=== PATIENT | male | born 1960 | race American Indian/Alaskan Native ===

== ENCOUNTER 2019-04-09 17:51 | Emergency (ER) | payer MEDICARE ==
[2019-04-09 18:05] VITALS: BP 156/79
--- NOTE | 2019-04-09 18:06 | Event Note ---
ED Screening Note Date of service: 04/09/19 Time: 18:03 ED Screening Note: This is a 59 y.o. M. that presents to the ER with rectal pain for months. Reports burning sensation with wipes and pruritus. - tarry stools Current smoker This initial assessment/diagnostic orders/clinical plan/treatment(s) is/are subject to change based on patients health status, clinical progression and re- assessment by fellow clinical providers in the ED. Further treatment and workup at subsequent clinical providers discretion. Patient/guardian urged not to elope from the ED as their condition may be serious if not clinically assessed and managed. Initial orders include:
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
== END 2019-04-09 22:12 | disposition home or self-care (01) ==
LOC: ED 17:51
DX: B00.9 Herpesviral infection, unspecified (principal); K62.9 Disease of anus and rectum, unspecified; I10 Essential (primary) hypertension; F17.200 Nicotine dependence, unspecified, uncomplicated; Z98.890 Other specified postprocedural states; Z91.011 Allergy to milk products; Z88.8 Allergy status to other drugs, medicaments and biological substances

== ENCOUNTER 2019-05-17 10:36 | Emergency (ER) | payer MEDICARE ==
[2019-05-17 13:49] LABS: Basophils % (Auto) 0.6 % (0.0-1.8); Eosinophils # (Auto) 0.1 K/mm3 (0.0-0.4); Eosinophils % (Auto) 1.2 % (0.0-4.3); Hematocrit 42.1 % (35.5-45.6); Lymphocytes # (Auto) 1.6 K/mm3 (1.2-5.4); Lymphocytes % (Auto) 26.5 % (13.4-35.0); Mean Corpuscular HGB Conc 33 % (32-34); Mean Corpuscular Volume 108 fl (84-94); Monocytes # (Auto) 0.7 K/mm3 (0.0-0.8); Monocytes % (Auto) 11.2 % (0.0-7.3); Platelet Count 303 K/mm3 (140-440); Red Blood Count 3.88 M/mm3 (3.65-5.03); Red Cell Distribution Width 15.3 % (13.2-15.2)
[2019-05-17 16:00] LABS: Alanine Aminotransferase 12 units/L (7-56); Albumin 3.9 g/dL (3.9-5); BUN/Creatinine Ratio 8; Blood Urea Nitrogen 11 mg/dL (9-20); Calcium 9.8 mg/dL (8.4-10.2); Hemolysis Index 9
--- NOTE | 2019-05-17 16:48 | Cat Scan Report ---
CT ABDOMEN AND PELVIS WITH CONTRAST INDICATION: Unspecified abdominal pain with rectal bleeding. COMPARISON: No relevant prior imaging study available. TECHNIQUE: Axial, coronal and sagittal CT imaging of the abdomen and pelvis was performed after inje ction of 100 mL Omnipaque [address] scans at this location are performed using CT dose re duction for ALARA by means of automated exposure control. FINDINGS: LOWER CHEST: No significant abnormality. LIVER: No significant abnormality. BILIARY: Cholelithiasis is seen without evidence of acute cholecystitis. No biliary ductal dilatation is noted. PANCREAS: No significant abnormality. SPLEEN: No significant abnormality. ADRENALS: No significant abnormality. KIDNEYS AND URETERS: No significant abnormality. GI TRACT: No significant abnormality is seen along the stomach or small bowel. The colon contains a l arge amount of stool with mild thickening of the sigmoid colon and rectum. There is generalized infil tration of the perirectal fat. No distinct mass or other significant abnormality is identified. The a ppendix is not seen. PERITONEUM: No free fluid. No free air. No fluid collection. LYMPH NODES: No significant adenopathy. VASCULATURE: The aorta is patent and normal in caliber with diffuse atherosclerosis. Diffuse atherosc lerosis is also seen throughout the visualized aortic branches. URINARY BLADDER: Mostly drained by a Velazquez catheter. REPRODUCTIVE ORGANS: No significant abnormality. ADDITIONAL FINDINGS: None. SKELETAL SYSTEM: No acute abnormality. Degenerative changes are seen throughout the spine and SI join ts. IMPRESSION: 1. Suspected acute colitis/proctitis without an associated complication. 2. Cholelithiasis without evidence of acute cholecystitis. 3. Additional findings as above. Signer Name: Minh Carroll MD Signed: 05/17/2019 4:44 PM Workstation Name: [id number]
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
[2019-05-17 17:34] VITALS: BP 136/90
== END 2019-05-17 17:33 | disposition home or self-care (01) ==
LOC: ED 10:36
DX: K52.9 Noninfective gastroenteritis and colitis, unspecified (principal); K62.89 Other specified diseases of anus and rectum; I10 Essential (primary) hypertension; J44.9 Chronic obstructive pulmonary disease, unspecified; F17.200 Nicotine dependence, unspecified, uncomplicated; Z91.011 Allergy to milk products; Z88.5 Allergy status to narcotic agent; Z93.3 Colostomy status; Z79.899 Other long term (current) drug therapy
CPT/HCPCS: 36415; 74177; 80053; 85025; 99284; Q9967

== ENCOUNTER 2019-05-27 00:01 | Emergency (ER) | payer MEDICARE, MEDICAID ==
[2019-05-27] MEDS ORDERED: ONDANSETRON 4 MG/2 ML INJ IV ONE (00:50)
[2019-05-27] MEDS ORDERED: MORPHINE 4 MG/1 ML INJ IV ONE (00:50)
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
[2019-05-27 01:27] LABS: Basophils # (Auto) 0.1 K/mm3 (0.0-0.1); Basophils % (Auto) 0.9 % (0.0-1.8); Eosinophils # (Auto) 0.1 K/mm3 (0.0-0.4); Eosinophils % (Auto) 1.1 % (0.0-4.3); Hematocrit 38.1 % (35.5-45.6); Hemoglobin 12.9 gm/dl (11.8-15.2); Lymphocytes % (Auto) 15.2 % (13.4-35.0); Mean Corpuscular HGB Conc 34 % (32-34); Mean Corpuscular Volume 107 fl (84-94); Monocytes # (Auto) 0.5 K/mm3 (0.0-0.8); Monocytes % (Auto) 6.9 % (0.0-7.3); Platelet Count 314 K/mm3 (140-440); Red Blood Count 3.56 M/mm3 (3.65-5.03); Red Cell Distribution Width 16.2 % (13.2-15.2)
[2019-05-27 01:50] LABS: Alanine Aminotransferase 10 units/L (7-56); Albumin 3.9 g/dL (3.9-5); BUN/Creatinine Ratio 12; Blood Urea Nitrogen 15 mg/dL (9-20); Calcium 11.1 mg/dL (8.4-10.2); Hemolysis Index 4
--- NOTE | 2019-05-27 01:58 | Cat Scan Report ---
CT ABDOMEN AND PELVIS WITH CONTRAST INDICATION / CLINICAL INFORMATION: right-sided abdominal pain, constipation. TECHNIQUE: Axial CT images were obtained through the abdomen and pelvis after 100 mL Omnipaque [address] scans at this location are performed using CT dose reduction for ALARA by means of automated exposure control. COMPARISON: CT dated 05/17/19 FINDINGS: LOWER CHEST: No significant abnormality. LIVER: No significant abnormality. GALLBLADDER: Small gallstones are unchanged. No gallbladder wall thickening. BILE DUCTS: No significant abnormality. PANCREAS: No significant abnormality. SPLEEN: No significant abnormality. ADRENALS: No significant abnormality. RIGHT KIDNEY and URETER: Interval development of mild right hydroureteronephrosis. No obstructing sto ne is identified. LEFT KIDNEY and URETER: Minimal left hydroureteronephrosis. No obstructing stone. STOMACH and SMALL BOWEL: Stomach and small bowel are fluid-filled but not dilated. COLON: Moderate to large amount of semisolid stool in the ascending and proximal transverse colon. APPENDIX: The appendix is upper normal size and fluid-filled without periappendiceal inflammation. PERITONEUM: Small amount of free fluid around the liver and in the pelvis. No free air. No fluid sally ection. LYMPH NODES: No significant adenopathy. AORTA and ARTERIES: Mild atherosclerotic calcification without acute abnormality. IVC and VEINS: No significant abnormality. URINARY BLADDER: Velazquez catheter is no longer present. There is thickening and nodularity of the poste rior wall of the urinary bladder especially in the region of the right ureterovesical junction. There is a 1.4 x 1.3 cm nodule in this location as seen on axial series 2 image 145. REPRODUCTIVE ORGANS: Prostate is enlarged and heterogeneous. ADDITIONAL FINDINGS: None. SKELETAL SYSTEM: No significant abnormality. IMPRESSION: 1. Interval development of mild right hydroureteronephrosis without obstructing stone. There is thick ening and nodularity of the posterior wall of the urinary bladder especially in the region of the rig ht ureterovesical junction. Urologic follow-up may be helpful. 2. Moderate to large amount of semisolid stool in the proximal colon with slight increase since the p rior study. Appendix is fluid-filled but not significantly dilated or inflamed. Signer Name: Luciana Mcadams MD Signed: 05/27/2019 1:54 AM Workstation Name: [id number]
[2019-05-27 03:00] LABS: Bilirubin,Urine NEG (Negative); Blood,Urine MOD (Negative); Color,Urine Yellow (Yellow); Protein,Urine <15 mg/dL mg/dL (Negative); Urobilinogen,Urine < 2.0 mg/dL (<2.0)
[2019-05-27] MEDS ORDERED: SODIUM CHLORIDE 0.9% 1000 ML 1,000 ML IV ONE (03:03)
[2019-05-27] MEDS ORDERED: KETOROLAC 30 MG/1 ML INJ IV ONE (03:03)
[2019-05-27 05:16] VITALS: BP 156/96
== END 2019-05-27 04:50 | disposition home or self-care (01) ==
LOC: ED 00:01
DX: N39.0 Urinary tract infection, site not specified (principal); N13.4 Hydroureter; E83.52 Hypercalcemia; I10 Essential (primary) hypertension; J44.9 Chronic obstructive pulmonary disease, unspecified; F17.200 Nicotine dependence, unspecified, uncomplicated; Z91.011 Allergy to milk products; Z88.5 Allergy status to narcotic agent
CPT/HCPCS: 36415; 74177; 80053; 81001; 83690; 85025; 87086; 96374; 96375; 99284; J1885; J2270; J2405; J7030; Q9967

== ENCOUNTER 2019-07-15 14:21 | Inpatient (IN) | payer MEDICAID, MEDICARE ==
[2019-07-15 16:43] LABS: Basophils # (Auto) 0.1 K/mm3 (0.0-0.1); Basophils % (Auto) 0.7 % (0.0-1.8); Eosinophils % (Auto) 0.6 % (0.0-4.3); Lymphocytes # (Auto) 1.5 K/mm3 (1.2-5.4); Mean Corpuscular HGB Conc 34 % (32-34); Mean Corpuscular Volume 107 fl (84-94); Monocytes # (Auto) 0.8 K/mm3 (0.0-0.8); Monocytes % (Auto) 9.8 % (0.0-7.3); Platelet Count 334 K/mm3 (140-440); Red Blood Count 3.27 M/mm3 (3.65-5.03); Red Cell Distribution Width 14.1 % (13.2-15.2)
--- NOTE | 2019-07-15 16:45 | XRay Report ---
CHEST 1 VIEW 4:11 PM INDICATION / CLINICAL INFORMATION: Shortness of breath. COMPARISON: None available. FINDINGS: SUPPORT DEVICES: There is a right jugular Port-A-Cath with the tip overlying the mid SVC. HEART / MEDIASTINUM: There is a median sternotomy. The heart size and pulmonary vasculature are monet l. LUNGS / PLEURA: The lungs are mildly hyperinflated but clear. No pneumothorax. ADDITIONAL FINDINGS: No significant additional findings. IMPRESSION:Probable emphysema. No other significant abnormality. Signer Name: Robbin Vargas MD Signed: 07/15/2019 4:40 PM Workstation Name: [id number]
[2019-07-15 18:51] LABS: BUN/Creatinine Ratio 16; Blood Urea Nitrogen 21 mg/dL (9-20)
[2019-07-15 18:53] LABS: Calcium 12.7 mg/dL (8.4-10.2); Hemolysis Index 7
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
[2019-07-15 19:51] LABS: Chol/HDL Ratio 3.75 %; HDL Cholesterol 44 mg/dL (40-59); LDL Cholesterol,Direct 93 mg/dL (50-130)
[2019-07-15 20:08] LABS: INR 1.04 (0.87-1.13); Partial Thromboplastin Time 33.5 Sec. (24.2-36.6)
[2019-07-15 20:32] LABS: Bacteria,Urine 3+ /HPF (Negative); Bilirubin,Urine NEG (Negative); Blood,Urine LG (Negative); Color,Urine Yellow (Yellow); Urobilinogen,Urine < 2.0 mg/dL (<2.0)
[2019-07-15] MEDS ORDERED: MORPHINE 4 MG/1 ML INJ IV ONE (21:33)
[2019-07-15] MEDS ORDERED: cefTRIAXone/NS 1 GM/50 ML 1 GM/50 ML BAG IV ONE (21:33)
--- NOTE | 2019-07-15 21:58 | Cat Scan Report ---
CT angio chest INDICATION: sob. TECHNIQUE: All CT scans at this location are performed using CT dose reduction for ALARA by means of automated e xposure control. Precontrast localizer images were obtained, followed by axial and 3-dimensional reconstruction images , performed at an independent workstation by the reliability technologist after IV bolus contrast injection. COMPARISON: None available. FINDINGS: Mediastinum, aidee and axillae are negative. Images through the upper abdomen show what appears to be bilateral hydronephrosis. No pleural fluid. Mild emphysema but no acute superimposed disease. Negative for pulmonary embolus. IMPRESSION: 1. No evidence of pulmonary embolus. 2. Mild emphysema. Signer Name: Max Henderson MD Signed: 07/15/2019 9:53 PM Workstation Name: [id number]
[2019-07-15] MEDS ORDERED: ASPIRIN 325 MG TAB PO ONE (22:00)
[2019-07-15] MEDS: ENOXAPARIN 60 MG/0.6 ML INJ SUB-Q SCH (22:31)
[2019-07-15] MEDS ORDERED: NITROGLYCERIN 0.4 MG TAB SUBL SL PRN (23:05)
[2019-07-15] MEDS ORDERED: ONDANSETRON 4 MG/2 ML INJ IV PRN (23:05)
[2019-07-15] MEDS ORDERED: ACETAMINOPHEN 325 MG TAB PO PRN (23:05)
--- NOTE | 2019-07-15 23:36 | History and Physical Report ---
History of Present Illness Date of examination: 07/15/19 Date of admission: 07/15/19 22:25 Chief complaint: Shortness of breath and difficulty breathing History of present illness: 59-year-old -[place] male with known history of COPD, HIV, anal cancer, coronary artery disease presenting to the emergency room today complaining of shortness of breath. He has had some shortness of breath on exertion. He denies any chest pain, no fever or chills, no nausea vomiting. He has had chronic anal pain but denies diarrhea. Upon evaluation in the emergency room he was found to have elevated troponin and also UTI. EKG done was within normal limit. Findings were discussed with the mannequin decorator on-call and recommendation was to have patient admitted for further work-up. Past History Past Medical History: CAD, COPD, hypertension, other (HIV positive, history of TB in 2006) Past Surgical History: Other (Colostomy reversal in July 2018) Social history: smoking (Smokes about half a pack of cigarette daily), alcohol abuse (Drinks alcohol occasionally) Family history: no significant family history Medications and Allergies Allergies Allergy/AdvReac Type Severity Reaction Status Date / Time milk Allergy Hives Verified 04/09/19 17:57 lisinopril AdvReac Angioedema Verified 04/09/19 17:57 Home Medications Medication Instructions Recorded Confirmed Last Taken Type Acyclovir [Zovirax Tab] 800 mg PO Q12H #40 tab 04/09/19 Unknown Rx Acyclovir [Zovirax] 1 applic TP BID #2 oint...g. 04/09/19 Unknown Rx Ibuprofen [Motrin] 800 mg PO Q8HR #30 tablet 04/09/19 Unknown Rx Dicyclomine [Bentyl] 20 mg PO QID #10 tablet 05/17/19 Unknown Rx Docusate Sodium [Colace] 100 mg PO BID #30 capsule 05/17/19 Unknown Rx HYDROcodone/APAP 5-325 [[place] 1 each PO Q6HR PRN #14 tablet 05/17/19 Unknown Rx 5/325] levoFLOXacin [Levaquin TAB] 500 mg PO QDAY #7 tablet 05/17/19 Unknown Rx metroNIDAZOLE [Flagyl] 500 mg PO Q12HR #14 tab 05/17/19 Unknown Rx HYDROcodone/APAP 5-325 [[place] 1 - 2 each PO Q6HR PRN #14 tablet 05/27/19 Unknown Rx 5/325] Ketorolac [Toradol] 10 mg PO Q6H PRN #16 tablet 05/27/19 Unknown Rx Sulfamethoxazole/Trimethoprim 1 each PO BID #14 tablet 05/27/19 Unknown Rx [Bactrim DS TAB] Active Meds: Active Medications Acetaminophen (Tylenol) 650 mg PO Q4H PRN PRN Reason: Pain MILD(1-3)/Fever >100.5/PANIAGUA Aspirin (Ecotrin) 325 mg PO QDAY [facility] Enoxaparin Sodium (Enoxaparin) 60 mg SUB-Q Q12HR [facility] Last Admin: 07/15/19 22:31 Dose: 60 mg Documented by: Ceftriaxone Sodium (Rocephin/Ns 1 Gm/50 Ml) 1 gm in 50 mls @ 100 mls/hr IV Q24HR [facility]; Protocol Morphine Sulfate (Morphine) 2 mg IV Q5MIN PRN PRN Reason: Chest Pain unrelieved by NTG Nitroglycerin (Nitrostat) 0.4 mg SL Q5M PRN PRN Reason: Chest Pain Ondansetron HCl (Zofran) 4 mg IV Q8H PRN PRN Reason: Nausea And Vomiting Sodium Chloride (Sodium Chloride Flush Syringe 10 Ml) 10 ml IV PRN PRN PRN Reason: LINE FLUSH Sodium Chloride (Sodium Chloride Flush Syringe 10 Ml) 10 ml IV BID [facility] Review of Systems Respiratory: shortness of breath Neurological: weakness Exam - Constitutional Vitals: Temp Pulse Resp BP Pulse Ox 97.7 F 85 10 L 132/69 100 07/15/19 19:20 07/15/19 23:00 07/15/19 23:00 07/15/19 23:00 07/15/19 23:00 General appearance: Present: no acute distress, cachectic - EENT Eyes: Present: PERRL, EOM intact ENT: hearing intact, clear oral mucosa, dentition normal - Neck Neck: Present: supple, normal ROM - Respiratory Respiratory: bilateral: CTA - Cardiovascular Rhythm: regular Heart Sounds: Present: S1 & S2 - Extremities Extremities: no ischemia, pulses intact, No edema, Full ROM Peripheral Pulses: within normal limits - Abdominal General gastrointestinal: Present: soft, non-tender, non-distended, other (Scar of old surgery in midline) - Integumentary Integumentary: Present: clear, warm, dry - Musculoskeletal Musculoskeletal: strength equal bilaterally - Psychiatric Psychiatric: appropriate mood/affect, intact judgment & insight, cooperative - Neurologic Neurologic: CNII-XII intact, moves all extremities Results - Labs CBC & Chem 7: 07/15/19 23:43 07/15/19 23:43 Labs: Abnormal lab results 07/15/19 07/15/19 07/15/19 Range/Units 16:24 16:24 16:24 RBC 3.27 L (3.65-5.03) M/mm3 Hct 35.0 L (35.5-45.6) % MCV 107 H (84-94) fl MCH 37 H (28-32) pg [place] % (Auto) 9.8 H (0.0-7.3) % D-Dimer (0-234) ng/mlDDU Chloride 110.2 H (98-107) mmol/L Carbon Dioxide 13 L (22-30) mmol/L BUN 21 H (9-20) mg/dL Glucose 115 H (75-100) mg/dL Calcium 12.7 H* (8.4-10.2) mg/dL Troponin T 0.046 H (0.00-0.029) ng/mL NT-Pro-B Natriuret Pep 1015 H (0-900) pg/mL Triglycerides 152 H (2-149) mg/dL Urine WBC (Auto) (0.0-6.0) /HPF 07/15/19 07/15/19 07/15/19 Range/Units 19:42 19:42 Unknown RBC (3.65-5.03) M/mm3 Hct (35.5-45.6) % MCV (84-94) fl MCH (28-32) pg [place] % (Auto) (0.0-7.3) % D-Dimer 1798.03 H (0-234) ng/mlDDU Chloride (98-107) mmol/L Carbon Dioxide (22-30) mmol/L BUN (9-20) mg/dL Glucose (75-100) mg/dL Calcium (8.4-10.2) mg/dL Troponin T 0.041 H (0.00-0.029) ng/mL NT-Pro-B Natriuret Pep (0-900) pg/mL Triglycerides (2-149) mg/dL Urine WBC (Auto) 99.0 H (0.0-6.0) /HPF Assessment and Plan - Patient Problems (1) NSTEMI (non-ST elevated myocardial infarction) Current Visit: Yes Status: Acute Plan to address problem: Denies any chest pain. Will monitor cardiac enzymes. We will placed on daily aspirin, sublingual nitroglycerin and IV morphine as needed. We await further recommendation from cardiology. We will also monitor EKG. (2) UTI (urinary tract infection) Current Visit: Yes Status: Acute Plan to address problem: Patient placed on empiric IV antibiotics. We await urine culture results. (3) Dyspnea Current Visit: Yes Status: Acute Plan to address problem: Probably angina equivalent. He awaits evaluation by cardiology. (4) Hypertension Current Visit: Yes Status: Acute Plan to address problem: We will continue routine home medications and monitor vital signs closely. (5) History of HIV infection Current Visit: Yes Status: Acute Plan to address problem: Patient will be continued on his medications. (6) DVT prophylaxis Current Visit: Yes Status: Acute Plan to address problem: Patient on subcutaneous Lovenox. (7) Full code status Current Visit: Yes Status: Acute
[2019-07-16 00:21] LABS: Basophils # (Auto) 0.1 K/mm3 (0.0-0.1); Basophils % (Auto) 0.6 % (0.0-1.8); Eosinophils % (Auto) 0.6 % (0.0-4.3); Hematocrit 36.2 % (35.5-45.6); Hemoglobin 12.4 gm/dl (11.8-15.2); Lymphocytes # (Auto) 1.8 K/mm3 (1.2-5.4); Lymphocytes % (Auto) 21.5 % (13.4-35.0); Mean Corpuscular HGB Conc 34 % (32-34); Mean Corpuscular Volume 108 fl (84-94); Monocytes # (Auto) 0.5 K/mm3 (0.0-0.8); Monocytes % (Auto) 6.3 % (0.0-7.3); Platelet Count 376 K/mm3 (140-440); Red Blood Count 3.36 M/mm3 (3.65-5.03); Red Cell Distribution Width 14.5 % (13.2-15.2)
[2019-07-16 00:32] LABS: BUN/Creatinine Ratio 18; Blood Urea Nitrogen 21 mg/dL (9-20); Hemolysis Index 4
[2019-07-16 00:48] LABS: Calcium > 13.0 mg/dL (8.4-10.2)
[2019-07-16] MEDS ORDERED: POTASSIUM CHLORIDE ER 20 MEQ TAB PO ONE (04:10)
[2019-07-16 05:24] LABS: Basophils # (Auto) 0.1 K/mm3 (0.0-0.1); Basophils % (Auto) 0.7 % (0.0-1.8); Eosinophils % (Auto) 0.5 % (0.0-4.3); Hematocrit 33.4 % (35.5-45.6); Hemoglobin 11.6 gm/dl (11.8-15.2); Lymphocytes # (Auto) 1.3 K/mm3 (1.2-5.4); Lymphocytes % (Auto) 18.3 % (13.4-35.0); Mean Corpuscular HGB Conc 35 % (32-34); Mean Corpuscular Volume 107 fl (84-94); Monocytes # (Auto) 0.7 K/mm3 (0.0-0.8); Monocytes % (Auto) 9.5 % (0.0-7.3); Platelet Count 332 K/mm3 (140-440); Red Blood Count 3.11 M/mm3 (3.65-5.03); Red Cell Distribution Width 14.4 % (13.2-15.2)
[2019-07-16 05:31] LABS: INR 1.08 (0.87-1.13); Partial Thromboplastin Time 31.1 Sec. (24.2-36.6)
[2019-07-16] MEDS: SODIUM CHLORIDE 0.9% 1000 ML 1,000 ML IV SCH (06:28)
[2019-07-16] MEDS: MORPHINE 2 MG/1 ML INJ IV PRN ×2 (06:30→23:29)
[2019-07-16 07:07] LABS: BUN/Creatinine Ratio 19; Blood Urea Nitrogen 23 mg/dL (9-20); Hemolysis Index 6
[2019-07-16 07:15] LABS: Calcium > 13.0 mg/dL (8.4-10.2)
--- NOTE | 2019-07-16 11:36 | Consultation ---
History of Present Illness Consult date: 07/16/19 Requesting physician: SPRING VALLEJO Consult reason: elevated troponin History of present illness: Mr. Dowell is a 59 y/o male with a medical history significant for COPD, anal cancer, HIV and CAD who presented to [facility] with worsening shortness of breath and dizziness f/b "feeling wobbly" for the past three days. He follows with a cleaner at [place]. CXR shows probable emphysema. Troponins elevated to 0.041 and 0.068 and thus, we are consulted. EKG NAF and the patient denies chest pain. Past History Past Medical History: CAD, COPD, hypertension, other (HIV positive, history of TB in 2006) Past Surgical History: Other (Colostomy reversal in July 2018) Social history: smoking (Smokes about half a pack of cigarette daily), alcohol abuse (Drinks alcohol occasionally) Family history: no significant family history Medications and Allergies Allergies Allergy/AdvReac Type Severity Reaction Status Date / Time milk Allergy Hives Verified 04/09/19 17:57 lisinopril AdvReac Angioedema Verified 04/09/19 17:57 Home Medications Medication Instructions Recorded Confirmed Last Taken Type Acyclovir [Zovirax Tab] 800 mg PO Q12H #40 tab 04/09/19 07/16/19 Unknown Rx Acyclovir [Zovirax] 1 applic TP BID #2 oint...g. 04/09/19 07/16/19 Unknown Rx Ibuprofen [Motrin] 800 mg PO Q8HR #30 tablet 04/09/19 07/16/19 Unknown Rx Dicyclomine [Bentyl] 20 mg PO QID #10 tablet 05/17/19 07/16/19 Unknown Rx Docusate Sodium [Colace] 100 mg PO BID #30 capsule 05/17/19 07/16/19 Unknown Rx HYDROcodone/APAP 5-325 [[place] 1 each PO Q6HR PRN #14 tablet 05/17/19 07/16/19 Unknown Rx 5/325] levoFLOXacin [Levaquin TAB] 500 mg PO QDAY #7 tablet 05/17/19 07/16/19 Unknown Rx metroNIDAZOLE [Flagyl] 500 mg PO Q12HR #14 tab 05/17/19 07/16/19 Unknown Rx HYDROcodone/APAP 5-325 [[place] 1 - 2 each PO Q6HR PRN #14 tablet 05/27/19 07/16/19 Unknown Rx 5/325] Ketorolac [Toradol] 10 mg PO Q6H PRN #16 tablet 05/27/19 07/16/19 Unknown Rx Sulfamethoxazole/Trimethoprim 1 each PO BID #14 tablet 05/27/19 07/16/19 Unknown Rx [Bactrim DS TAB] Active Meds: Active Medications Acetaminophen (Tylenol) 650 mg PO Q4H PRN PRN Reason: Pain MILD(1-3)/Fever >100.5/PANIAGUA Aspirin (Ecotrin) 325 mg PO QDAY [facility] Enoxaparin Sodium (Enoxaparin) 60 mg SUB-Q Q12HR [facility] Last Admin: 07/15/19 22:31 Dose: 60 mg Documented by: Ceftriaxone Sodium (Rocephin/Ns 1 Gm/50 Ml) 1 gm in 50 mls @ 100 mls/hr IV Q24HR [facility]; Protocol Sodium Chloride (Nacl 0.9% 1000 Ml) 1,000 mls @ 125 mls/hr IV DIRECT [facility] Last Admin: 07/16/19 06:28 Dose: 125 mls/hr Documented by: Morphine Sulfate (Morphine) 2 mg IV Q5MIN PRN PRN Reason: Chest Pain unrelieved by NTG Last Admin: 07/16/19 06:30 Dose: 2 mg Documented by: Nitroglycerin (Nitrostat) 0.4 mg SL Q5M PRN PRN Reason: Chest Pain Ondansetron HCl (Zofran) 4 mg IV Q8H PRN PRN Reason: Nausea And Vomiting Sodium Chloride (Sodium Chloride Flush Syringe 10 Ml) 10 ml IV PRN PRN PRN Reason: LINE FLUSH Sodium Chloride (Sodium Chloride Flush Syringe 10 Ml) 10 ml IV BID [facility] Review of Systems All systems: negative Cardiovascular: shortness of breath Physical Examination Vital Signs Temp Pulse Resp BP Pulse Ox 97.6 F 60 16 171/87 98 07/15/19 17:40 07/15/19 17:40 07/15/19 17:40 07/15/19 17:40 07/15/19 17:40 General appearance: no acute distress HEENT: Positive: PERRL Neck: Positive: neck supple Cardiac: Positive: Reg Rate and Rhythm Lungs: Positive: Normal Exam Neuro: Positive: Grossly Intact Abdomen: Positive: Unremarkable Male genitourinary: Positive: deferred Skin: Positive: Clear Musculoskeletal: Normal Range of Motion Extremities: Present: normal Results 07/16/19 05:03 07/16/19 05:03 Coagulation 07/15/19 07/16/19 Range/Units 19:42 05:03 PT 13.7 14.1 (12.2-14.9) Sec. INR 1.04 1.08 (0.87-1.13) APTT 33.5 31.1 (24.2-36.6) Sec. Lipids 07/15/19 Range/Units 16:24 Triglycerides 152 H (2-149) mg/dL Cholesterol 165 (50-199) mg/dL HDL Cholesterol 44 (40-59) mg/dL Cholesterol/HDL Ratio 3.75 % CBC 07/15/19 07/15/19 07/16/19 Range/Units 16:24 23:43 05:03 WBC 7.8 8.3 7.1 (4.5-11.0) K/mm3 RBC 3.27 L 3.36 L 3.11 L (3.65-5.03) M/mm3 Hgb 12.0 12.4 11.6 L (11.8-15.2) gm/dl Hct 35.0 L 36.2 33.4 L (35.5-45.6) % Plt Count 334 376 332 (140-440) K/mm3 Lymph # 1.5 1.8 1.3 (1.2-5.4) K/mm3 [place] # 0.8 0.5 0.7 (0.0-0.8) K/mm3 Eos # 0.0 0.0 0.0 (0.0-0.4) K/mm3 Baso # 0.1 0.1 0.1 (0.0-0.1) K/mm3 Comprehensive Metabolic Panel 07/15/19 07/15/19 07/16/19 Range/Units 16:24 23:43 05:03 Sodium 138 139 138 (137-145) mmol/L Potassium 3.8 3.1 L 3.5 L (3.6-5.0) mmol/L Chloride 110.2 H 108.2 H 108.7 H (98-107) mmol/L Carbon Dioxide 13 L 16 L 15 L (22-30) mmol/L BUN 21 H 21 H 23 H (9-20) mg/dL Creatinine 1.3 1.2 1.2 (0.8-1.5) mg/dL Glucose 115 H 119 H 119 H (75-100) mg/dL Calcium 12.7 H* > 13.0 H* > 13.0 H* (8.4-10.2) mg/dL - Imaging and Cardiology Echo: pending EKG interpretations - Telemetry EKG Rhythm: Sinus Rhythm Assessment and Plan Mr. Dowell is a 59 y/o male admitted with SOB. Symptom presentation does not appear to be cardiac in origin given CXR, other diagnostics and physical exam; troponin elevation likely r/t demand ischemia. However, will obtain medical records from [place] to evaluate prior cardiac workup. Recommend pulmonology consultation. Continue current management for now. The patient has been seen in conjunction with Dr. Randle, who agrees with the assessment and plan. - Patient Problems (1) Dyspnea Current Visit: Yes Status: Acute (2) Elevated troponin Current Visit: Yes Status: Acute (3) COPD (chronic obstructive pulmonary disease) Current Visit: Yes Status: Chronic (4) CAD (coronary artery disease) Current Visit: Yes Status: Chronic (5) History of anal cancer Current Visit: Yes Status: Chronic (6) History of HIV infection Current Visit: Yes Status: Chronic (7) Hypertension Current Visit: Yes Status: Chronic
[2019-07-16] MEDS: cefTRIAXone/NS 1 GM/50 ML 1 GM/50 ML BAG IV SCH (12:23)
[2019-07-16] MEDS: ENOXAPARIN 60 MG/0.6 ML INJ SUB-Q SCH ×2 (12:24→21:52)
[2019-07-16] MEDS: ASPIRIN EC 325 MG TAB PO SCH (12:24)
[2019-07-17] MEDS: SODIUM CHLORIDE 0.9% 1000 ML 1,000 ML IV SCH ×2 (05:12→18:25)
[2019-07-17] MEDS: cefTRIAXone/NS 1 GM/50 ML 1 GM/50 ML BAG IV SCH (09:34)
[2019-07-17] MEDS: ASPIRIN EC 325 MG TAB PO SCH (09:35)
[2019-07-17] MEDS: ENOXAPARIN 60 MG/0.6 ML INJ SUB-Q SCH ×2 (09:35→21:13)
--- NOTE | 2019-07-17 12:56 | Progress Note ---
Assessment and Plan (1) NSTEMI (non-ST elevated myocardial infarction) Current Visit: Yes Status: Acute Plan to address problem: Denies any chest pain. Will monitor cardiac enzymes. We will placed on daily aspirin, sublingual nitroglycerin and IV morphine as needed. We await further recommendation from cardiology. We will also monitor EKG. (2) UTI (urinary tract infection) Current Visit: Yes Status: Acute Plan to address problem: Patient placed on empiric IV antibiotics. We await urine culture results. (3) Dyspnea Current Visit: Yes Status: Acute Plan to address problem: Probably angina equivalent. He awaits evaluation by cardiology. (4) Hypertension Current Visit: Yes Status: Acute Plan to address problem: We will continue routine home medications and monitor vital signs closely. (5) History of HIV infection Current Visit: Yes Status: Acute Plan to address problem: Patient will be continued on his medications. (6) DVT prophylaxis Current Visit: Yes Status: Acute Plan to address problem: Patient on subcutaneous Lovenox. (7) Hypercalcemia IV Fluids and Pamidronate Subjective Date of service: 07/16/19 Principal diagnosis: NSTEMI Interval history: 59-year-old -[place] male with known history of COPD, HIV, anal cancer, coronary artery disease presenting to the emergency room today complaining of shortness of breath. He has had some shortness of breath on exertion. He denies any chest pain, no fever or chills, no nausea vomiting. He has had chronic anal pain but denies diarrhea. Upon evaluation in the emergency room he was found to have elevated troponin and also UTI. EKG done was within normal limit. Findings were discussed with the microsoft windows engineer on-call and recommendation was to have patient admitted for further work-up. Objective - Constitutional Vitals: Vital Signs - 12hr 07/17/19 07/17/19 05:17 07:35 Temperature 97.6 F 98.6 F Pulse Rate 72 63 Respiratory 18 19 Rate Blood Pressure 122/71 158/93 O2 Sat by Pulse 100 100 Oximetry General appearance: Present: no acute distress, well-nourished - EENT Eyes: PERRL, EOM intact ENT: hearing intact, clear oral mucosa Ears: bilateral: normal - Neck Neck: supple, normal ROM - Respiratory Respiratory effort: normal Respiratory: bilateral: CTA - Breasts Breasts: normal - Cardiovascular Rhythm: regular Heart Sounds: Present: S1 & S2. Absent: gallop, rub Extremities: pulses intact, No edema, normal color, Full ROM - Gastrointestinal General gastrointestinal: Present: soft, non-tender, non-distended, normal bowel sounds - Genitourinary Male genitourinary: normal - Integumentary Integumentary: clear, warm, dry - Musculoskeletal Musculoskeletal: 1, strength equal bilaterally - Neurologic Neurologic: moves all extremities - Psychiatric Psychiatric: memory intact, appropriate mood/affect, intact judgment & insight - Labs CBC & Chem 7: 07/16/19 05:03 07/16/19 05:03
--- NOTE | 2019-07-17 13:22 | Progress Note ---
Assessment and Plan (1) NSTEMI (non-ST elevated myocardial infarction) Current Visit: Yes Status: Acute Plan to address problem: Denies any chest pain. Will monitor cardiac enzymes. We will placed on daily aspirin, sublingual nitroglycerin and IV morphine as needed. We await further recommendation from cardiology. We will also monitor EKG. (2) UTI (urinary tract infection) Current Visit: Yes Status: Acute Plan to address problem: Patient placed on empiric IV antibiotics. We await urine culture results. (3) Dyspnea Current Visit: Yes Status: Acute Plan to address problem: Probably angina equivalent. He awaits evaluation by cardiology. (4) Hypertension Current Visit: Yes Status: Acute Plan to address problem: We will continue routine home medications and monitor vital signs closely. (5) History of HIV infection Current Visit: Yes Status: Acute Plan to address problem: Patient will be continued on his medications. (6) DVT prophylaxis Current Visit: Yes Status: Acute Plan to address problem: Patient on subcutaneous Lovenox. (7) Hypercalcemia IV Fluids and Pamidronate Check PTH Subjective Date of service: 07/17/19 Principal diagnosis: NSTEMI Interval history: 59-year-old -British male with known history of COPD, HIV, anal cancer, coronary artery disease presenting to the emergency room today complaining of shortness of breath. He has had some shortness of breath on exertion. He denies any chest pain, no fever or chills, no nausea vomiting. He has had chronic anal pain but denies diarrhea. Upon evaluation in the emergency room he was found to have elevated troponin and also UTI. EKG done was within normal limit. Findings were discussed with the telesales agent on-call and recommendation was to have patient admitted for further work-up. Objective - Constitutional Vitals: Vital Signs - 12hr 07/17/19 07/17/19 05:17 07:35 Temperature 97.6 F 98.6 F Pulse Rate 72 63 Respiratory 18 19 Rate Blood Pressure 122/71 158/93 O2 Sat by Pulse 100 100 Oximetry General appearance: Present: no acute distress, well-nourished - EENT Eyes: PERRL, EOM intact ENT: hearing intact, clear oral mucosa Ears: bilateral: normal - Neck Neck: supple, normal ROM - Respiratory Respiratory effort: normal Respiratory: bilateral: CTA - Breasts Breasts: normal - Cardiovascular Heart rate: 78 Rhythm: regular Heart Sounds: Present: S1 & S2. Absent: gallop, rub Extremities: no ischemia, pulses intact, No edema, normal color, Full ROM - Gastrointestinal General gastrointestinal: Present: soft, non-tender, non-distended, normal bowel sounds - Genitourinary Male genitourinary: normal - Integumentary Integumentary: clear, warm, dry - Musculoskeletal Musculoskeletal: 1, strength equal bilaterally - Neurologic Neurologic: moves all extremities - Psychiatric Psychiatric: memory intact, appropriate mood/affect, intact judgment & insight - Labs CBC & Chem 7: 07/16/19 05:03 07/16/19 05:03
[2019-07-17] MEDS: PAMIDRONATE DISODIUM 30 MG in SODIUM CHLORIDE 0.9% 500 ML 500 ML IV SCH (14:20)
--- NOTE | 2019-07-17 14:45 | Progress Note ---
Assessment and Plan Mr. Dowell is a 59 y/o male admitted with SOB. Symptom presentation does not appear to be cardiac in origin given CXR, other diagnostics and physical exam; troponin elevation likely r/t demand ischemia. However, will obtain medical records from [place] to evaluate prior cardiac workup. 07/17/2019.awaiting reports from [place],has significant hypercalcemia . Subjective Date of service: 07/17/19 Principal diagnosis: NSTEMI Interval history: Denies any chest pain. Objective Vital Signs Temp Pulse Resp BP Pulse Ox 07/17/19 07:35 98.6 F 63 19 158/93 100 07/17/19 05:17 97.6 F 72 18 122/71 100 07/17/19 00:17 97.9 F 55 L 18 151/90 98 07/16/19 23:29 20 07/16/19 20:18 97.7 F 73 20 136/79 100 07/16/19 20:00 103 H 07/16/19 16:31 98.0 F 69 18 142/86 92 - Physical Examination HEENT: Positive: PERRL Neck: Positive: neck supple Cardiac: Positive: Regular Rhythm Lungs: Positive: Normal Breath Sounds Neuro: Positive: Grossly Intact Abdomen: Positive: Unremarkable Skin: Positive: Clear Musculoskeletal: Normal Range of Motion Extremities: Present: normal. Absent: edema - Imaging and Cardiology Echo: pending
[2019-07-17] MEDS: MORPHINE 2 MG/1 ML INJ IV PRN ×2 (16:07→21:13)
[2019-07-18] MEDS: MORPHINE 2 MG/1 ML INJ IV PRN ×2 (03:29→21:54)
[2019-07-18] MEDS: ENOXAPARIN 60 MG/0.6 ML INJ SUB-Q SCH ×2 (10:49→21:54)
[2019-07-18] MEDS: cefTRIAXone/NS 1 GM/50 ML 1 GM/50 ML BAG IV SCH (10:49)
[2019-07-18] MEDS: ASPIRIN EC 325 MG TAB PO SCH (10:49)
--- NOTE | 2019-07-18 15:10 | Progress Note ---
Assessment and Plan Dyspnea / suspected emphysema Echo done at [facility] 12/2018 showed EF 55-60%, LA mod dilated. DDimer elevated - chest CTA negative for PE, shows mild emphysema. Plan for lexiscan MPI stress test in AM. NPO after MN. CAD s/p CABG in 2012 Plan for lexiscan MPI stress test in AM. NPO after MN. Minimally elevated troponin Pt denies any occurrence of chest pain. ECG with no acute ischemic changes. However, pt denies any recent ischemic evaluation. Plan for lexiscan MPI stress test in AM. NPO after MN. UTI HIV H/o anal cancer S/p chemo and radiation in 2006 H/o perforated diverticulitis S/p colostomy with reversal in 07/2018 Hypercalcemia Per primary. The patient has been seen in conjunction with Dr. Marin who agrees with the assessment and plan of care. Subjective Date of service: 07/18/19 Principal diagnosis: sob; elevated trop Interval history: pt resting in bed, no current cardiac complaints. in SR on tele with some ST and freq PACs noted overnight. Objective Last Vital Signs Temp 98.1 F 07/18/19 08:27 Pulse 61 07/18/19 08:27 Resp 18 07/18/19 08:27 BP 164/92 07/18/19 08:27 Pulse Ox 100 07/18/19 08:27 - Physical Examination General: Cachectic HEENT: Positive: PERRL Neck: Positive: neck supple Cardiac: Positive: Reg Rate and Rhythm, S1/S2 Lungs: Positive: Decreased Breath Sounds Neuro: Positive: Grossly Intact Abdomen: Positive: Unremarkable Skin: Positive: Clear Musculoskeletal: Normal Range of Motion Extremities: Present: normal. Absent: edema - Imaging and Cardiology Echo: pending - Telemetry EKG Rhythm: Sinus Rhythm
[2019-07-18] MEDS: PAMIDRONATE DISODIUM 30 MG in SODIUM CHLORIDE 0.9% 500 ML 500 ML IV SCH (15:20)
--- NOTE | 2019-07-18 16:10 | Progress Note ---
Assessment and Plan (1) NSTEMI (non-ST elevated myocardial infarction) Current Visit: Yes Status: Acute Plan to address problem: Denies any chest pain. Will monitor cardiac enzymes. We will placed on daily aspirin, sublingual nitroglycerin and IV morphine as needed. We await further recommendation from cardiology. We will also monitor EKG. For Lexiscan in AM (2) UTI (urinary tract infection) Current Visit: Yes Status: Acute Plan to address problem: Patient placed on empiric IV antibiotics. We await urine culture results. (3) Dyspnea Current Visit: Yes Status: Acute Plan to address problem: Probably angina equivalent. He awaits evaluation by cardiology. (4) Hypertension Current Visit: Yes Status: Acute Plan to address problem: We will continue routine home medications and monitor vital signs closely. (5) History of HIV infection Current Visit: Yes Status: Acute Plan to address problem: Patient will be continued on his medications. (6) DVT prophylaxis Current Visit: Yes Status: Acute Plan to address problem: Patient on subcutaneous Lovenox. (7) Hypercalcemia IV Fluids and Pamidronate Check PTH Subjective Date of service: 07/18/19 Principal diagnosis: sob; elevated trop Interval history: 59-year-old -[place] male with known history of COPD, HIV, anal cancer, coronary artery disease presenting to the emergency room today complaining of shortness of breath. He has had some shortness of breath on exertion. He denies any chest pain, no fever or chills, no nausea vomiting. He has had chronic anal pain but denies diarrhea. Upon evaluation in the emergency room he was found to have elevated troponin and also UTI. EKG done was within normal limit. Findings were discussed with the securities clerk on-call and recommendation was to have patient admitted for further work-up. For Lexiscan in AM Todays calcium level pending. Objective - Constitutional Vitals: Vital Signs - 12hr 07/18/19 07/18/19 07/18/19 05:50 05:52 08:27 Temperature 98.4 F 98.1 F Pulse Rate 58 L 61 Respiratory 18 18 Rate Blood Pressure 159/84 164/92 O2 Sat by Pulse 100 100 Oximetry General appearance: Present: no acute distress, well-nourished - EENT Eyes: PERRL, EOM intact ENT: hearing intact, clear oral mucosa Ears: bilateral: normal - Neck Neck: supple, normal ROM - Respiratory Respiratory effort: normal Respiratory: bilateral: CTA - Breasts Breasts: normal - Cardiovascular Rhythm: regular Heart Sounds: Present: S1 & S2. Absent: gallop, rub Extremities: pulses intact, No edema, normal color, Full ROM - Gastrointestinal General gastrointestinal: Present: soft, non-tender, non-distended, normal bowel sounds - Genitourinary Male genitourinary: normal - Integumentary Integumentary: clear, warm, dry - Musculoskeletal Musculoskeletal: 1, strength equal bilaterally - Neurologic Neurologic: moves all extremities - Psychiatric Psychiatric: memory intact, appropriate mood/affect, intact judgment & insight - Labs CBC & Chem 7: 07/16/19 05:03 07/16/19 05:03 Labs: Abnormal lab results 07/17/19 Range/Units 16:31 PTH Intact 6.86 L (15-65) pg/mL
[2019-07-18] MEDS: SODIUM CHLORIDE 0.9% 1000 ML 1,000 ML IV SCH (16:42)
[2019-07-18 17:50] LABS: Alanine Aminotransferase 8 units/L (7-56); Albumin 3.5 g/dL (3.9-5); BUN/Creatinine Ratio 13; Blood Urea Nitrogen 14 mg/dL (9-20); Calcium 11.6 mg/dL (8.4-10.2); Hemolysis Index 20
[2019-07-18] MEDS: METOPROLOL TARTRATE 25 MG TAB PO SCH (21:55)
[2019-07-19 06:45] LABS: Basophils % (Auto) 0.6 % (0.0-1.8); Eosinophils % (Auto) 0.5 % (0.0-4.3); Hematocrit 29.1 % (35.5-45.6); Hemoglobin 10.1 gm/dl (11.8-15.2); Lymphocytes # (Auto) 0.9 K/mm3 (1.2-5.4); Lymphocytes % (Auto) 15.3 % (13.4-35.0); Mean Corpuscular HGB Conc 35 % (32-34); Mean Corpuscular Volume 108 fl (84-94); Monocytes # (Auto) 0.5 K/mm3 (0.0-0.8); Monocytes % (Auto) 8.5 % (0.0-7.3); Platelet Count 269 K/mm3 (140-440); Red Cell Distribution Width 14.3 % (13.2-15.2)
[2019-07-19 07:14] LABS: BUN/Creatinine Ratio 14; Blood Urea Nitrogen 14 mg/dL (9-20); Calcium 11.5 mg/dL (8.4-10.2); Hemolysis Index 68
[2019-07-19] MEDS ORDERED: REGADENOSON 0.4 MG/5 ML INJ IV ONE ×2 (08:00→08:07)
--- NOTE | 2019-07-19 12:16 | Progress Note ---
Assessment and Plan Dyspnea / suspected emphysema Echo done at [facility] 12/2018 showed EF 55-60%, LA mod dilated. DDimer elevated - chest CTA negative for PE, shows mild emphysema. S/p lexiscan MPI stress test today which was negative. CAD s/p CABG in 2012 S/p lexiscan MPI stress test today which was negative. Minimally elevated troponin Pt denies any occurrence of chest pain. ECG with no acute ischemic changes. S/p lexiscan MPI stress test today which was negative. UTI HIV H/o anal cancer S/p chemo and radiation in 2006 H/o perforated diverticulitis S/p colostomy with reversal in 07/2018 Hypercalcemia Per primary. S/p lexiscan MPI stress test today which was negative. No current cardiac complaints. Currently stable cardiac status. Nothing further to add from cardiac perspective at this time. Will sign off. Recommend pt follow up in our office with Dr. Randle within 1-2 weeks of discharge ([phone]). The patient has been seen in conjunction with Dr. Marin who agrees with the assessment and plan of care. Subjective Date of service: 07/19/19 Principal diagnosis: sob; elevated trop Interval history: pt resting in bed, no current cardiac complaints, for stress test today. in SR on tele with PACs noted overnight. Objective Last Vital Signs Temp 97.8 F 07/19/19 08:35 Pulse 55 L 07/19/19 08:35 Resp 18 07/19/19 08:35 BP 162/70 07/19/19 09:41 Pulse Ox 100 07/19/19 08:35 - Physical Examination General: Cachectic HEENT: Positive: PERRL Neck: Positive: neck supple Cardiac: Positive: Reg Rate and Rhythm, S1/S2 Lungs: Positive: Decreased Breath Sounds Neuro: Positive: Grossly Intact Abdomen: Positive: Unremarkable Skin: Positive: Clear Musculoskeletal: Normal Range of Motion Extremities: Present: normal. Absent: edema - Labs and Meds Cardiac Enzymes 07/18/19 Range/Units 16:36 AST 22 (5-40) units/L CBC 07/19/19 Range/Units 05:28 WBC 6.2 (4.5-11.0) K/mm3 RBC 2.70 L (3.65-5.03) M/mm3 Hgb 10.1 L (11.8-15.2) gm/dl Hct 29.1 L (35.5-45.6) % Plt Count 269 (140-440) K/mm3 Lymph # 0.9 L (1.2-5.4) K/mm3 [place] # 0.5 (0.0-0.8) K/mm3 Eos # 0.0 (0.0-0.4) K/mm3 Baso # 0.0 (0.0-0.1) K/mm3 Comprehensive Metabolic Panel 07/18/19 07/19/19 Range/Units 16:36 05:28 Sodium 139 141 (137-145) mmol/L Potassium 3.6 3.9 (3.6-5.0) mmol/L Chloride 112.2 H 112.2 H (98-107) mmol/L Carbon Dioxide 15 L 15 L (22-30) mmol/L BUN 14 14 (9-20) mg/dL Creatinine 1.1 1.0 (0.8-1.5) mg/dL Glucose 121 H 112 H (75-100) mg/dL Calcium 11.6 H 11.5 H (8.4-10.2) mg/dL AST 22 (5-40) units/L ALT 8 (7-56) units/L Alkaline Phosphatase 49 (35-129) units/L Total Protein 6.6 (6.3-8.2) g/dL Albumin 3.5 L (3.9-5) g/dL - Imaging and Cardiology Echo: pending
[2019-07-19 12:25] VITALS: BP 143/70
[2019-07-19] MEDS: ASPIRIN EC 325 MG TAB PO SCH (12:25)
[2019-07-19] MEDS: METOPROLOL TARTRATE 25 MG TAB PO SCH (12:25)
[2019-07-19] MEDS: cefTRIAXone/NS 1 GM/50 ML 1 GM/50 ML BAG IV SCH (12:27)
[2019-07-19] MEDS: ENOXAPARIN 60 MG/0.6 ML INJ SUB-Q SCH (12:27)
[2019-07-19] MEDS: PAMIDRONATE DISODIUM 30 MG in SODIUM CHLORIDE 0.9% 500 ML 500 ML IV SCH (14:30)
--- NOTE | 2019-07-19 16:17 | Discharge Summary ---
Providers - Providers Date of Admission: 07/18/19 13:28 Date of discharge: 07/19/19 Attending physician: GOOD BRUNO 07/15/19 Consult to Cardiac Rehabilitation [CONS] Routine Reason For Exam: Phase I 07/15/19 20:17 Consult to Physician [CONS] Stat Comment: Dr. Ryder spoke with Dr Morales @ 2013 Consulting Provider: AUGUSTINE MORALES Physician Instructions: Reason For Exam: elevated troponin Primary care physician: [employer] Hospitalization Condition: Stable Pertinent studies: Lexiscan--Normal Hospital course: (1) NSTEMI (non-ST elevated myocardial infarction) Current Visit: Yes Status: Acute Plan to address problem: Denies any chest pain. Will monitor cardiac enzymes. We will placed on daily aspirin, sublingual nitroglycerin and IV morphine as needed.. We will also monitor EKG. Lexiscan--Normal GERD Atypical chest pain (2) UTI (urinary tract infection) Current Visit: Yes Status: Acute Plan to address problem: will d/c on oral abx (3) Dyspnea Current Visit: Yes Status: Acute Plan to address problem: Improved (4) Hypertension Current Visit: Yes Status: Acute Plan to address problem: Improved (5) History of HIV infection Current Visit: Yes Status: Acute Plan to address problem: F/u with ID as outpatient (7) Hypercalcemia Pth not elevated Calcium levels near normal Disposition: DC-01 TO HOME OR SELFCARE Core Measure Documentation - Palliative Care Palliative Care/ Comfort Measures: Not Applicable - Core Measures Any of the following diagnoses?: none Exam - Constitutional Vitals: Temp Pulse Resp BP Pulse Ox 97.8 F 74 19 143/70 99 07/19/19 08:35 07/19/19 12:25 07/19/19 10:00 07/19/19 12:25 07/19/19 10:00 General appearance: Present: no acute distress, well-nourished - EENT Eyes: Present: PERRL ENT: hearing intact, clear oral mucosa - Neck Neck: Present: supple, normal ROM - Respiratory Respiratory effort: normal Respiratory: bilateral: CTA - Cardiovascular Heart Sounds: Present: S1 & S2. Absent: rub, click - Extremities Extremities: pulses symmetrical, No edema Peripheral Pulses: within normal limits - Abdominal General gastrointestinal: Present: soft, non-tender, non-distended, normal bowel sounds Male genitourinary: Present: normal - Integumentary Integumentary: Present: clear, warm, dry - Musculoskeletal Musculoskeletal: gait normal, strength equal bilaterally - Psychiatric Psychiatric: appropriate mood/affect, intact judgment & insight - Neurologic Neurologic: CNII-XII intact, moves all extremities Plan Activity: no restrictions Diet: regular Follow up with: PRIMARY CAREMD [Primary Care Provider] - 3-5 Days ERMIAS SCHULTE MD [Staff Physician] - 7 Days
[2019-07-19] MEDS: MORPHINE 2 MG/1 ML INJ IV PRN (16:33)
== END 2019-07-19 19:28 | disposition home or self-care (01) | DRG 391 ==
LOC: ED 14:21 → 4A 22:25 → OBSVTOIN 07-18 13:28
PROVIDERS: ADMIT Internal Medicine Geriatric Medicine; ATTEND Internal Medicine
DX: K21.9 Gastro-esophageal reflux disease without esophagitis (principal); E43 Unspecified severe protein-calorie malnutrition; N39.0 Urinary tract infection, site not specified; E83.52 Hypercalcemia; I25.10 Atherosclerotic heart disease of native coronary artery without angina pectoris; J44.9 Chronic obstructive pulmonary disease, unspecified; F10.10 Alcohol abuse, uncomplicated; I10 Essential (primary) hypertension; F17.210 Nicotine dependence, cigarettes, uncomplicated; Z95.1 Presence of aortocoronary bypass graft; Z85.048 Personal history of other malignant neoplasm of rectum, rectosigmoid junction, and anus; Z72.89 Other problems related to lifestyle; Z91.011 Allergy to milk products; Z79.899 Other long term (current) drug therapy; Z21 Asymptomatic human immunodeficiency virus [HIV] infection status
CPT/HCPCS: 36415; 71045; 71275; 78452; 80048; 80053; 80061; 81001; 83880; 83970; 84484; 85025; 85379; 85610; 85730; 87086; 93005; 93010; 93017; 96365; 96375; G0378; A9270-GY; A9502; J0696; J1650; J2270; J2405; J2430; J2785; J7030; J7040; Q9967

== ENCOUNTER 2019-07-24 14:28 | Inpatient (IN) | payer MEDICARE ==
--- NOTE | 2019-07-24 17:38 | Event Note ---
ED Screening Note Date of service: 07/24/19 Time: 17:37 ED Screening Note: 59 y o male presents with sob, nausea and abd pain x 1 day cc of loose stools PMH: enlarged prostate on [place] leon[place] This initial assessment/diagnostic orders/clinical plan/treatment(s) is/are subject to change based on patients health status, clinical progression and re- assessment by fellow clinical providers in the ED. Further treatment and workup at subsequent clinical providers discretion. Patient/guardian urged not to elope from the ED as their condition may be serious if not clinically assessed and managed. Initial orders include: labs, main side eval
[2019-07-24 19:27] LABS: Basophils # (Auto) 0.1 K/mm3 (0.0-0.1); Basophils % (Auto) 1.2 % (0.0-1.8); Eosinophils # (Auto) 0.1 K/mm3 (0.0-0.4); Eosinophils % (Auto) 0.8 % (0.0-4.3); Hematocrit 37.9 % (35.5-45.6); Hemoglobin 12.6 gm/dl (11.8-15.2); Lymphocytes # (Auto) 0.5 K/mm3 (1.2-5.4); Lymphocytes % (Auto) 5.8 % (13.4-35.0); Mean Corpuscular HGB Conc 33 % (32-34); Mean Corpuscular Volume 102 fl (84-94); Monocytes # (Auto) 0.8 K/mm3 (0.0-0.8); Monocytes % (Auto) 8.7 % (0.0-7.3); Platelet Count 154 K/mm3 (140-440); Red Blood Count 3.73 M/mm3 (3.65-5.03); Red Cell Distribution Width 15.2 % (13.2-15.2)
[2019-07-24 19:46] LABS: Alanine Aminotransferase 18 units/L (7-56); Albumin 4.1 g/dL (3.9-5); BUN/Creatinine Ratio 7; Blood Urea Nitrogen 66 mg/dL (9-20); Calcium 9.7 mg/dL (8.4-10.2); Hemolysis Index 13
[2019-07-24] MEDS ORDERED: SODIUM CHLORIDE 0.9% 1000 ML 1,000 ML IV ONE (21:53)
[2019-07-24] MEDS ORDERED: ONDANSETRON 4 MG/2 ML INJ IV ONE (21:53)
[2019-07-24] MEDS ORDERED: MORPHINE 4 MG/1 ML INJ IV ONE (21:53)
--- NOTE | 2019-07-24 22:45 | Emergency Department Report ---
ED General Adult HPI - General Chief complaint: Nausea/Vomiting/Diarrhea Stated complaint: WANTS A PROCEDURE TO BE DONE Time Seen by Provider: 07/24/19 21:39 Source: patient Mode of arrival: Ambulatory Limitations: No Limitations - History of Present Illness Initial comments: pt is a 59-year-old male presents emergency room with complaints of diarrhea t hat began 2-3 weeks ago. He has associated nausea and lower abdominal pain. He states that he intermittently has seen blood in his stool for the last week. He denies any fever, vomiting, shortness of breath, chest pain, pus in the stool. He has a past medical history of COPD, CABG, rectal cancer, HIV, diverticulitis. He states that his HIV is undetectable. He states he last had a colonoscopy in April 2019 at [facility] and states it was normal per patient Severity scale (0 -10): 5 - Related Data Previous Rx's Medication Instructions Recorded Last Taken Type Acyclovir [Zovirax Tab] 800 mg PO Q12H #40 tab 04/09/19 Unknown Rx Acyclovir [Zovirax] 1 applic TP BID #2 oint...g. 04/09/19 Unknown Rx Dicyclomine [Bentyl] 20 mg PO QID #10 tablet 05/17/19 Unknown Rx Docusate Sodium [Colace CAP] 100 mg PO BID #30 capsule 05/17/19 Unknown Rx HYDROcodone/APAP 5-325 [Coram 1 each PO Q6HR PRN #14 tablet 05/17/19 Unknown Rx 5-325 mg TAB] levoFLOXacin [Levaquin TAB] 500 mg PO QDAY #7 tablet 05/17/19 Unknown Rx metroNIDAZOLE [Flagyl TAB] 500 mg PO Q12HR #14 tab 05/17/19 Unknown Rx HYDROcodone/APAP 5-325 [Coram 1 - 2 each PO Q6HR PRN #14 tablet 05/27/19 Unknown Rx 5-325 mg TAB] Sulfamethoxazole/Trimethoprim 1 each PO BID #14 tablet 05/27/19 Unknown Rx [Bactrim DS TAB] Aspirin EC 325 mg PO QDAY #100 tablet 07/19/19 Unknown Rx AtorvaSTATin [Lipitor] 20 mg PO QHS #30 tablet 07/19/19 Unknown Rx Metoprolol [Lopressor TAB] 25 mg PO BID #60 tablet 07/19/19 Unknown Rx Nitrofurantoin [place]/M-Cryst 100 mg PO Q12HR #16 capsule 07/19/19 Unknown Rx [Macrobid CAP] Nicotine [Habitrol] 14 mg TD QDAY #15 patch 07/26/19 Unknown Rx cefUROXime [Ceftin] 2 tab PO Q12H #14 tablet 07/26/19 Unknown Rx Allergies Allergy/AdvReac Type Severity Reaction Status Date / Time lactose AdvReac Unknown Verified 07/17/19 12:17 lisinopril AdvReac Angioedema Verified 04/09/19 17:57 ED Review of Systems ROS: Stated complaint: WANTS A PROCEDURE TO BE DONE Other details as noted in HPI Comment: All other systems reviewed and negative ED Past Medical Hx - Past Medical History Previous Medical History?: Yes Hx Hypertension: Yes Hx COPD: Yes Hx Tuberculosis: Yes (2006) Hx HIV: Yes Additional medical history: COLOSTOMY BAG- reversed jul 2018. catheter. diverticulitis - Surgical History Past Surgical History?: Yes Additional Surgical History: OPEN HEART SURGERY aneurism. colonostomy and reversal due to diverticulitis Jul 2018 - Social History Smoking Status: Never Smoker Substance Use Type: None - Medications Home Medications: Home Medications Medication Instructions Recorded Confirmed Last Taken Type Acyclovir [Zovirax Tab] 800 mg PO Q12H #40 tab 04/09/19 07/16/19 Unknown Rx Acyclovir [Zovirax] 1 applic TP BID #2 oint...g. 04/09/19 07/16/19 Unknown Rx Dicyclomine [Bentyl] 20 mg PO QID #10 tablet 05/17/19 07/16/19 Unknown Rx Docusate Sodium [Colace CAP] 100 mg PO BID #30 capsule 05/17/19 07/16/19 Unknown Rx HYDROcodone/APAP 5-325 [Coram 1 each PO Q6HR PRN #14 tablet 05/17/19 07/16/19 Unknown Rx 5-325 mg TAB] levoFLOXacin [Levaquin TAB] 500 mg PO QDAY #7 tablet 05/17/19 07/16/19 Unknown Rx metroNIDAZOLE [Flagyl TAB] 500 mg PO Q12HR #14 tab 05/17/19 07/16/19 Unknown Rx HYDROcodone/APAP 5-325 [Coram 1 - 2 each PO Q6HR PRN #14 tablet 05/27/19 07/16/19 Unknown Rx 5-325 mg TAB] Sulfamethoxazole/Trimethoprim 1 each PO BID #14 tablet 05/27/19 07/16/19 Unknown Rx [Bactrim DS TAB] Aspirin EC 325 mg PO QDAY #100 tablet 07/19/19 Unknown Rx AtorvaSTATin [Lipitor] 20 mg PO QHS #30 tablet 07/19/19 Unknown Rx Metoprolol [Lopressor TAB] 25 mg PO BID #60 tablet 07/19/19 Unknown Rx Nitrofurantoin [place]/M-Cryst 100 mg PO Q12HR #16 capsule 07/19/19 Unknown Rx [Macrobid CAP] Nicotine [Habitrol] 14 mg TD QDAY #15 patch 07/26/19 Unknown Rx cefUROXime [Ceftin] 2 tab PO Q12H #14 tablet 07/26/19 Unknown Rx ED Physical Exam - General Limitations: No Limitations General appearance: alert, cachectic - Head Head exam: Present: atraumatic, normocephalic - Eye Eye exam: Present: normal appearance - ENT ENT exam: Present: mucous membranes dry (mildly) - Respiratory Respiratory exam: Present: normal lung sounds bilaterally. Absent: respiratory distress, wheezes, rales, rhonchi, stridor, chest wall tenderness, accessory muscle use, decreased breath sounds, prolonged expiratory - Cardiovascular Cardiovascular Exam: Present: normal rhythm, bradycardia, normal heart sounds. Absent: systolic murmur, diastolic murmur, rubs, gallop - GI/Abdominal GI/Abdominal exam: Present: soft, tenderness (lower abdomen), normal bowel danelle nds. Absent: distended, guarding, rebound, rigid - Rectal Rectal exam: Present: heme (+) stool, other (electronic equipment repairmen: Madhu, RN, firm mass felt in the rectal vault, it is not fluctuant, hemoccult performed and developed by me and it is positive, no gross blood on exam, brown loose stool) - Neurological Exam Neurological exam: Present: alert, oriented X3 - Psychiatric Psychiatric exam: Present: normal affect, normal mood - Skin Skin exam: Present: warm, dry, intact ED Course Vital Signs 07/24/19 07/24/19 07/24/19 15:07 21:55 22:00 Temperature 97.5 F L Pulse Rate 50 L 79 Respiratory 16 9 L 12 Rate Blood Pressure 154/83 186/108 O2 Sat by Pulse 99 100 Oximetry 0107/24/19 07/24/19 22:15 22:30 22:45 Temperature Pulse Rate 71 68 Respiratory 14 14 18 Rate Blood Pressure 170/96 162/93 O2 Sat by Pulse 99 100 100 Oximetry 07/24/19 07/24/19 07/24/19 23:00 23:15 23:30 Temperature Pulse Rate Respiratory 15 13 12 Rate Blood Pressure 159/90 145/88 148/84 O2 Sat by Pulse 99 99 100 Oximetry 07/24/19 07/25/19 07/25/19 23:45 00:01 00:15 Temperature Pulse Rate 74 73 65 Respiratory 15 25 H 12 Rate Blood Pressure 145/85 130/72 155/89 O2 Sat by Pulse 100 100 100 Oximetry 07/25/19 07/25/19 07/25/19 00:30 00:45 01:01 Temperature Pulse Rate 70 64 71 Respiratory 20 14 13 Rate Blood Pressure 141/81 141/81 138/84 O2 Sat by Pulse 100 100 100 Oximetry 07/25/19 07/25/19 07/25/19 01:15 01:30 01:45 Temperature Pulse Rate 74 69 73 Respiratory 23 13 12 Rate Blood Pressure 147/82 151/85 146/83 O2 Sat by Pulse 100 100 100 Oximetry 07/25/19 07/25/19 07/25/19 02:00 02:15 02:30 Temperature Pulse Rate 65 72 66 Respiratory 12 16 13 Rate Blood Pressure 145/88 150/84 149/93 O2 Sat by Pulse 100 100 100 Oximetry 07/25/19 07/25/19 07/25/19 02:45 03:00 03:15 Temperature Pulse Rate 71 62 66 Respiratory 14 12 14 Rate Blood Pressure 150/92 144/85 145/87 O2 Sat by Pulse 100 99 98 Oximetry 07/25/19 07/25/19 07/25/19 03:30 03:41 04:11 Temperature 97.6 F Pulse Rate 69 72 68 Respiratory 13 15 18 Rate Blood Pressure 140/84 144/85 152/88 O2 Sat by Pulse 100 100 96 Oximetry - Consultations Consultation #1: 07/24/19 23:[address] Felipe, metal stamper regarding pt and pts labs results, recommended starting normal saline 125ml/hr, obtain renal US, and call back if potassium is elevated 07/24/19 23:[address] Brar, general surgery, regarding pt and she states that she is willing to see patient, advised NPO and IVF and will see in the hospital 07/24/19 23:59 spoke with [facility] transfer line who states that [facility] is only accepting trauma, burn, and strokes 07/25/19 00:05 Spoke with [facility] transfer line who is going to call the urologist stone carriage operator and call back 07/25/19 01:[address] Anders, [place] [facility] regarding pt and states that the urologic complaints could be managed as an outpatient and does not need transfer from a urology standpoint 07/25/19 01:[address] Vang, hospitalist who states that urologist needs to be on board before admission 07/25/19 01:[address] Juárez, urologist regarding pt and he will consult on patient in the hospital 07/25/19 01:[address] Vang, hospitalist she will accept and resume care of patient ED Medical Decision Making - Lab Data Result diagrams: 07/26/19 06:45 07/26/19 06:45 Lab Results 07/24/19 07/24/19 07/24/19 Range/Units 00:31 18:57 18:57 WBC 8.8 (4.5-11.0) K/mm3 RBC 3.73 (3.65-5.03) M/mm3 Hgb 12.6 (11.8-15.2) gm/dl Hct 37.9 (35.5-45.6) % MCV 102 H (84-94) fl MCH 34 H (28-32) pg MCHC 33 (32-34) % RDW 15.2 (13.2-15.2) % Plt Count 154 (140-440) K/mm3 Lymph % (Auto) 5.8 L (13.4-35.0) % [place] % (Auto) 8.7 H (0.0-7.3) % Eos % (Auto) 0.8 (0.0-4.3) % Baso % (Auto) 1.2 (0.0-1.8) % Lymph # 0.5 L (1.2-5.4) K/mm3 [place] # 0.8 (0.0-0.8) K/mm3 Eos # 0.1 (0.0-0.4) K/mm3 Baso # 0.1 (0.0-0.1) K/mm3 Seg Neutrophils % 83.5 H (40.0-70.0) % Seg Neutrophils # 7.3 (1.8-7.7) K/mm3 Sodium 136 L (137-145) mmol/L Potassium TNR Chloride 93.4 L (98-107) mmol/L Carbon Dioxide 18 L (22-30) mmol/L Anion Gap 31 mmol/L BUN 66 H (9-20) mg/dL Creatinine 9.3 H (0.8-1.5) mg/dL Estimated GFR 7 ml/min BUN/Creatinine Ratio 7 % Glucose 254 H (75-100) mg/dL Calcium 9.7 (8.4-10.2) mg/dL Total Bilirubin 0.50 (0.1-1.2) mg/dL AST 25 (5-40) units/L ALT 18 (7-56) units/L Alkaline Phosphatase 136 H (35-129) units/L Total Protein 7.9 (6.3-8.2) g/dL Albumin 4.1 (3.9-5) g/dL Albumin/Globulin Ratio 1.1 % Amylase 129 (27-131) units/L Lipase 214 H (13-60) units/L Urine Color Yellow (Yellow) Urine Turbidity Cloudy (Clear) Urine pH 7.0 (5.0-7.0) Ur Specific [place] 1.008 (1.003-1.030) Urine Protein 100 mg/dl (Negative) mg/dL Urine Glucose (UA) Neg (Negative) mg/dL Urine Ketones Neg (Negative) mg/dL Urine Blood Lg (Negative) Urine Nitrite Pos (Negative) Urine Bilirubin Neg (Negative) Urine Urobilinogen < 2.0 (<2.0) mg/dL Ur Leukocyte Esterase Lg (Negative) Urine WBC (Auto) 57.0 H (0.0-6.0) /HPF Urine RBC (Auto) 38.0 (0.0-6.0) /HPF Urine Bacteria (Auto) 4+ (Negative) /HPF Amorphous Crystals Few Urine Mucus Few /HPF 07/24/19 Range/Units 23:21 WBC (4.5-11.0) K/mm3 RBC (3.65-5.03) M/mm3 Hgb (11.8-15.2) gm/dl Hct (35.5-45.6) % MCV (84-94) fl MCH (28-32) pg MCHC (32-34) % RDW (13.2-15.2) % Plt Count (140-440) K/mm3 Lymph % (Auto) (13.4-35.0) % [place] % (Auto) (0.0-7.3) % Eos % (Auto) (0.0-4.3) % Baso % (Auto) (0.0-1.8) % Lymph # (1.2-5.4) K/mm3 [place] # (0.0-0.8) K/mm3 Eos # (0.0-0.4) K/mm3 Baso # (0.0-0.1) K/mm3 Seg Neutrophils % (40.0-70.0) % Seg Neutrophils # (1.8-7.7) K/mm3 Sodium 137 (137-145) mmol/L Potassium 2.9 L* Chloride 106.5 (98-107) mmol/L Carbon Dioxide 17 L (22-30) mmol/L Anion Gap 16 mmol/L BUN 24 H (9-20) mg/dL Creatinine 1.6 H D (0.8-1.5) mg/dL Estimated GFR 54 ml/min BUN/Creatinine Ratio 15 % Glucose 107 H (75-100) mg/dL Calcium 10.1 (8.4-10.2) mg/dL Total Bilirubin (0.1-1.2) mg/dL AST (5-40) units/L ALT (7-56) units/L Alkaline Phosphatase (35-129) units/L Total Protein (6.3-8.2) g/dL Albumin (3.9-5) g/dL Albumin/Globulin Ratio % Amylase (27-131) units/L Lipase (13-60) units/L Urine Color (Yellow) Urine Turbidity (Clear) Urine pH (5.0-7.0) Ur Specific [place] (1.003-1.030) Urine Protein (Negative) mg/dL Urine Glucose (UA) (Negative) mg/dL Urine Ketones (Negative) mg/dL Urine Blood (Negative) Urine Nitrite (Negative) Urine Bilirubin (Negative) Urine Urobilinogen (<2.0) mg/dL Ur Leukocyte Esterase (Negative) Urine WBC (Auto) (0.0-6.0) /HPF Urine RBC (Auto) (0.0-6.0) /HPF Urine Bacteria (Auto) (Negative) /HPF Amorphous Crystals Urine Mucus /HPF - Radiology Data Radiology results: report reviewed CT abdomen pelvis wo con INDICATION: Patient complains of abdominal and rectal pain with diarrhea.. TECHNIQUE: All CT scans at this location are performed using CT dose reduction for ALARA by means of automated exposure control. COMPARISON: 05/27/2019 FINDINGS: No acute disease in the lung bases. Liver, spleen and pancreas are negative. B oth kidneys are again hydronephrotic, with proximal ureteral dilatation. There is suggestion of rylee aortic adenopathy, which is slightly more prominent than on the previous exam but less well seen because of lack of IV contrast. Pelvis The right colon is again abnormal, with considerable fecal material in the right and proximal transverse colon. Left colon appears unremarkable. However, I cannot identify a definite obstructing mass. Velazquez catheter is present in the urinary bladder. Prostate is enlarged, with slightly irregular thickening of the bladder base. IMPRESSION: 1. Slightly progressed bilateral hydronephrosis, probably due to obstruction at the ureterovesical junctions, with questionable bladder mass. Suggest urologic consultation. 2. Probably increasing retroperitoneal adenopathy. This is not well seen on this noncontrast exam. 3. Distended and feces filled right colon. Appearance raises the possibility of an obstructive process in the transverse colon. Again, this is not well demonstrated on this exam without IV or oral contrast. Signer Name: Max Henderson MD Signed: 07/24/2019 11:20 PM Workstation Name: [id number] Transcribed By: TM Dictated By: Max Henderson MD Electronically Authenticated By: Max Henderson MD Signed Date/Time: 07/24/19 2320 DD/ 231 TD/TT: - Medical Decision Making pt is a 59-year-old male presents emergency room with complaints of diarrhea that began 2-3 weeks ago. He has associated nausea and lower abdominal pain. He states that he intermittently has seen blood in his stool for the last week. He denies any fever, vomiting, shortness of breath, chest pain, pus in the stool. He has a past medical history of COPD, CABG, rectal cancer, HIV, diverticulitis. He states that his HIV is undetectable. He states he last had a colonoscopy in April 2019 at [facility] and states it was normal per patient. VSS. initial labs were hemolyzed. on repeat of BMP pt has hypokalemia at 2.[address] abd pelvis shows: 1. Slightly progressed bilateral hydronephrosis, probably due to obstruction at the ureterovesical junctions, with questionable bladder mass. Suggest urologic consultation. 2. Probably increasing retroperitoneal adenopathy. This is not well seen on this noncontrast exam. 3. Distended and feces filled right colon. Appearance raises the possibility of an obstructive process in the transverse colon. Again, this is not well demonstrated on this exam without IV or oral contrast. pt admitted to the hospital. please see consultations above. Critical care attestation.: If time is entered above; I have spent that time in minutes in the direct care of this critically ill patient, excluding procedure time. ED Disposition Clinical Impression: Colon obstruction, Bilateral hydronephrosis, WERO (acute kidney injury), Hypokalemia GI bleed Qualifiers: GI bleed type/associated pathology: unspecified gastrointestinal hemorrhage type Qualified Code(s): K92.2 - Gastrointestinal hemorrhage, unspecified UTI (urinary tract infection) Qualifiers: Urinary tract infection type: acute cystitis Hematuria presence: with hematuria Qualified Code(s): N30.01 - Acute cystitis with hematuria Disposition: OP ADMIT IP TO THIS HOSP Is pt being admited?: Yes Does the pt Need Aspirin: No Condition: Fair
--- NOTE | 2019-07-24 23:24 | Cat Scan Report ---
CT abdomen pelvis wo con INDICATION: Patient complains of abdominal and rectal pain with diarrhea.. TECHNIQUE: All CT scans at this location are performed using CT dose reduction for ALARA by means of automated e xposure control. COMPARISON: 05/27/2019 FINDINGS: No acute disease in the lung bases. Liver, spleen and pancreas are negative. Both kidneys are again h ydronephrotic, with proximal ureteral dilatation. There is suggestion of periaortic adenopathy, which is slightly more prominent than on the previous exam but less well seen because of lack of IV contra st. Pelvis The right colon is again abnormal, with considerable fecal material in the right and proximal transve rse colon. Left colon appears unremarkable. However, I cannot identify a definite obstructing mass. F oley catheter is present in the urinary bladder. Prostate is enlarged, with slightly irregular thicke finn of the bladder base. IMPRESSION: 1. Slightly progressed bilateral hydronephrosis, probably due to obstruction at the ureterovesical ju nctions, with questionable bladder mass. Suggest urologic consultation. 2. Probably increasing retroperitoneal adenopathy. This is not well seen on this noncontrast exam. 3. Distended and feces filled right colon. Appearance raises the possibility of an obstructive proces s in the transverse colon. Again, this is not well demonstrated on this exam without IV or oral contr ast. Signer Name: Max Henderson MD Signed: 07/24/2019 11:20 PM Workstation Name: [id number]
[2019-07-25 00:12] LABS: Calcium 10.1 mg/dL (8.4-10.2)
[2019-07-25] MEDS ORDERED: POTASSIUM CHLORIDE 10 MEQ 10 MEQ/100 ML BAG IV ONE (00:35)
--- NOTE | 2019-07-25 00:47 | Ultrasound Report ---
US renal BILAT INDICATION / CLINICAL INFORMATION: acute renal failure. COMPARISON: None available. FINDINGS: Kidneys are normal in size, shape and position. Cortical thickness of each kidney is normal. Both kidneys are mildly to moderately hydronephrotic. Velazquez catheter in the bladder. IMPRESSION: 1. Mild to moderate bilateral hydronephrosis, of uncertain etiology. Kidneys are otherwise negative. Signer Name: Max Henderson MD Signed: 07/25/2019 12:42 AM Workstation Name: [email or web address]
[2019-07-25] MEDS ORDERED: MORPHINE 4 MG/1 ML INJ IV ONE (00:54)
[2019-07-25 01:11] LABS: Amorphous Crystals,Urine Few; Bacteria,Urine 4+ /HPF (Negative); Bilirubin,Urine NEG (Negative); Blood,Urine LG (Negative); Color,Urine Yellow (Yellow); Mucus,Urine FEW /HPF; Urobilinogen,Urine < 2.0 mg/dL (<2.0)
[2019-07-25] MEDS: SODIUM CHLORIDE 0.9% 1000 ML 1,000 ML IV SCH ×2 (01:25→12:00)
[2019-07-25] MEDS ORDERED: cefTRIAXone/NS 1 GM/50 ML 1 GM/50 ML BAG IV ONE (01:47)
[2019-07-25] MEDS ORDERED: HYDROmorphone 1 MG/1 ML INJ IV PRN (02:42)
[2019-07-25] MEDS ORDERED: METOCLOPRAMIDE 10 MG/2 ML INJ IV PRN (02:42)
[2019-07-25] MEDS ORDERED: ACETAMINOPHEN 325 MG TAB PO PRN (02:42)
[2019-07-25] MEDS ORDERED: ONDANSETRON 4 MG/2 ML INJ IV PRN (02:42)
[2019-07-25] MEDS ORDERED: ALBUTEROL 2.5 MG/3 ML NEBU IH PRN (02:42)
--- NOTE | 2019-07-25 03:27 | History and Physical Report ---
<VALERI HARDY - Last Filed: 07/25/19 03:47> History of Present Illness Date of examination: 07/25/19 Date of admission: 07/25/2019 Chief complaint: Diarrhea and abdominal pain History of present illness: 59-year-old -[place] male who is an ongoing smoker with history of HIV, anal cancer, COPD, CAD status post CABG, hypertension, diverticulitis and TB (2006) who presents to [facility] ED with complaints of abdominal pain and diarrhea for the past 3 weeks. Of note patient is a poor historian. Patient states that he has been experiencing diarrhea with intermittent blood in stool and abdominal pain for the past 3 weeks. Patient states that he wants something to be done to relieve his diarrhea. He describes his pain as aching and rates it 6/10. He admits to intermittent nausea. Denies emesis, diaphoresis, headache, fever, cough, hemoptysis, hematemesis, or shortness of breath. Review of medical record shows patient was recently admitted on 07/15/2019, and found to have an STEMI and a urinary tract infection. Patient underwent Lexiscan (on 07/19/19), which was negative. He was discharged on the and advised to follow-up with cardiology in 1 to 2 weeks and given a prescription for oral antibiotics to treat his urinary tract infection. Is unclear whether patient started oral antibiotic treatment. Past History Past Medical History: acute [place] (NSTEMI 06/2019), CAD, cancer (Anal cancer), COPD, HIV/AIDS, hypertension, other (Diverticulitis, colostomy, TB (2006)) Past Surgical History: CABG, Other (Colostomy, reversal in 07/2018) Social history: smoking (Smokes half a pack a day) Family history: no significant family history Medications and Allergies Allergies Allergy/AdvReac Type Severity Reaction Status Date / Time lactose AdvReac Unknown Verified 07/17/19 12:17 lisinopril AdvReac Angioedema Verified 04/09/19 17:57 Home Medications Medication Instructions Recorded Confirmed Last Taken Type Acyclovir [Zovirax Tab] 800 mg PO Q12H #40 tab 04/09/19 07/16/19 Unknown Rx Acyclovir [Zovirax] 1 applic TP BID #2 oint...g. 04/09/19 07/16/19 Unknown Rx Ibuprofen [Motrin] 800 mg PO Q8HR #30 tablet 04/09/19 07/16/19 Unknown Rx Dicyclomine [Bentyl] 20 mg PO QID #10 tablet 05/17/19 07/16/19 Unknown Rx Docusate Sodium [Colace] 100 mg PO BID #30 capsule 05/17/19 07/16/19 Unknown Rx HYDROcodone/APAP 5-325 [[place] 1 each PO Q6HR PRN #14 tablet 05/17/19 07/16/19 Unknown Rx 5/325] levoFLOXacin [Levaquin TAB] 500 mg PO QDAY #7 tablet 05/17/19 07/16/19 Unknown Rx metroNIDAZOLE [Flagyl] 500 mg PO Q12HR #14 tab 05/17/19 07/16/19 Unknown Rx HYDROcodone/APAP 5-325 [[place] 1 - 2 each PO Q6HR PRN #14 tablet 05/27/19 07/16/19 Unknown Rx 5/325] Ketorolac [Toradol] 10 mg PO Q6H PRN #16 tablet 05/27/19 07/16/19 Unknown Rx Sulfamethoxazole/Trimethoprim 1 each PO BID #14 tablet 05/27/19 07/16/19 Unknown Rx [Bactrim DS TAB] Aspirin EC 325 mg PO QDAY #100 tablet 07/19/19 Unknown Rx AtorvaSTATin [Lipitor] 20 mg PO QHS #30 tablet 07/19/19 Unknown Rx Metoprolol [Lopressor TAB] 25 mg PO BID #60 tablet 07/19/19 Unknown Rx Nitrofurantoin Bowman/M-Cryst 100 mg PO Q12HR #16 capsule 07/19/19 Unknown Rx [Macrobid CAP] Active Meds: Active Medications Acetaminophen (Tylenol) 650 mg PO Q4H PRN PRN Reason: Pain MILD(1-3)/Fever >100.5/PANIAGUA Albuterol (Proventil) 2.5 mg IH Q3HRT PRN PRN Reason: Shortness Of Breath Hydromorphone HCl (Dilaudid) 0.5 mg IV Q3H PRN PRN Reason: Pain , Severe (7-10) Sodium Chloride (Nacl 0.9% 1000 Ml) 1,000 mls @ 125 mls/hr IV DIRECT JASON Last Admin: 07/25/19 01:25 Dose: 125 mls/hr Documented by: Potassium Chloride (Kcl 10meq/100ml) 10 meq in 100 mls @ 100 mls/hr IV Q1H [facility] Stop: 07/25/19 04:59 Ceftriaxone Sodium (Rocephin/Ns 1 Gm/50 Ml) 1 gm in 50 mls @ 100 mls/hr IV Q24HR [facility]; Protocol Metoclopramide HCl (Reglan) 10 mg IV Q6H PRN PRN Reason: Nausea And Vomiting Morphine Sulfate (Morphine) 2 mg IV Q4H PRN PRN Reason: Pain, Moderate (4-6) Nicotine (Habitrol) 14 mg TD QDAY JASON Ondansetron HCl (Zofran) 4 mg IV Q4H PRN PRN Reason: Nausea And Vomiting Sodium Chloride (Sodium Chloride Flush Syringe 10 Ml) 10 ml IV BID JASON Sodium Chloride (Sodium Chloride Flush Syringe 10 Ml) 10 ml IV PRN PRN PRN Reason: LINE FLUSH Review of Systems All systems: negative Constitutional: weight loss Gastrointestinal: abdominal pain, nausea, diarrhea, hematochezia (Intermittently) Exam - Physical Exam Narrative exam: Physical exam General appearance: Present: No acute distress, alert and oriented 3, thin, pleasant, poor historian, , adult male - EENT Eyes: Present: PERRL, EOM intact ENT: hearing intact, normal dentition - Neck Neck: Present: supple, normal ROM - Respiratory Respiratory effort: Non-labored Respiratory: Diminished bases - Cardiovascular Heart rate: 72 (bpm) Rhythm: Sinus rhythm Heart Sounds: Present: S1 & S2. Absent: rub, click - Extremities Extremities: no ischemia, pulses intact, - Peripheral Assessment Peripheral Pulses: within normal limits - Abdominal General gastrointestinal: soft, Scar of old surgery in midline, tenderness to RLQ and LLQ , normal bowel sounds - : Velazquez catheter present on arrival (per pt it was placed 3 weeks ago at [place] ) - Integumentary Integumentary: Present: warm, dry - Musculoskeletal Musculoskeletal: Able to move all extremities -Neurological Neurological: CN II-XII intact - Psychiatric Psychiatric: cooperative - Constitutional Vitals: Temp Pulse Resp BP Pulse Ox 97.5 F L 66 13 149/93 100 07/24/19 15:07 07/25/19 02:30 07/25/19 02:30 07/25/19 02:30 07/25/19 02:30 Results - Labs CBC & Chem 7: 07/24/19 18:57 07/24/19 23:21 Labs: Laboratory Last Values WBC 8.8 K/mm3 (4.5-11.0) 07/24/19 18:57 RBC 3.73 M/mm3 (3.65-5.03) 07/24/19 18:57 Hgb 12.6 gm/dl (11.8-15.2) 07/24/19 18:57 Hct 37.9 % (35.5-45.6) 07/24/19 18:57 MCV 102 fl (84-94) H 07/24/19 18:57 MCH 34 pg (28-32) H 07/24/19 18:57 MCHC 33 % (32-34) 07/24/19 18:57 RDW 15.2 % (13.2-15.2) 07/24/19 18:57 Plt Count 154 K/mm3 (140-440) 07/24/19 18:57 Lymph % (Auto) 5.8 % (13.4-35.0) L 07/24/19 18:57 Bowman % (Auto) 8.7 % (0.0-7.3) H 07/24/19 18:57 Eos % (Auto) 0.8 % (0.0-4.3) 07/24/19 18:57 Baso % (Auto) 1.2 % (0.0-1.8) 07/24/19 18:57 Lymph # 0.5 K/mm3 (1.2-5.4) L 07/24/19 18:57 Bowman # 0.8 K/mm3 (0.0-0.8) 07/24/19 18:57 Eos # 0.1 K/mm3 (0.0-0.4) 07/24/19 18:57 Baso # 0.1 K/mm3 (0.0-0.1) 07/24/19 18:57 Seg Neutrophils % 83.5 % (40.0-70.0) H 07/24/19 18:57 Seg Neutrophils # 7.3 K/mm3 (1.8-7.7) 07/24/19 18:57 Sodium 137 mmol/L (137-145) 07/24/19 23:21 Potassium 2.9 mmol/L (3.6-5.0) L* 07/24/19 23:21 Chloride 106.5 mmol/L (98-107) 07/24/19 23:21 Carbon Dioxide 17 mmol/L (22-30) L 07/24/19 23:21 Anion Gap 16 mmol/L 07/24/19 23:21 BUN 24 mg/dL (9-20) H 07/24/19 23:21 Creatinine 1.6 mg/dL (0.8-1.5) H D 07/24/19 23:21 Estimated GFR 54 ml/min 07/24/19 23:21 BUN/Creatinine Ratio 15 % 07/24/19 23:21 Glucose 107 mg/dL (75-100) H 07/24/19 23:21 Calcium 10.1 mg/dL (8.4-10.2) 07/24/19 23:21 Total Bilirubin 0.50 mg/dL (0.1-1.2) 07/24/19 18:57 AST 25 units/L (5-40) 07/24/19 18:57 ALT 18 units/L (7-56) 07/24/19 18:57 Alkaline Phosphatase 136 units/L (35-129) H 07/24/19 18:57 Total Protein 7.9 g/dL (6.3-8.2) 07/24/19 18:57 Albumin 4.1 g/dL (3.9-5) 07/24/19 18:57 Albumin/Globulin Ratio 1.1 % 07/24/19 18:57 Amylase 129 units/L (27-131) 07/24/19 18:57 Lipase 214 units/L (13-60) H 07/24/19 18:57 Urine Color Yellow (Yellow) 07/24/19 00:31 Urine Turbidity Cloudy (Clear) 07/24/19 00:31 Urine pH 7.0 (5.0-7.0) 07/24/19 00:31 Ur Specific [place] 1.008 (1.003-1.030) 07/24/19 00:31 Urine Protein 100 mg/dl mg/dL (Negative) 07/24/19 00:31 Urine Glucose (UA) Neg mg/dL (Negative) 07/24/19 00:31 Urine Ketones Neg mg/dL (Negative) 07/24/19 00:31 Urine Blood Lg (Negative) 07/24/19 00:31 Urine Nitrite Pos (Negative) 07/24/19 00:31 Urine Bilirubin Neg (Negative) 07/24/19 00: Urine Urobilinogen < 2.0 mg/dL (<2.0) 07/24/19 00:31 Ur Leukocyte Esterase Lg (Negative) 07/24/19 00:31 Urine WBC (Auto) 57.0 /HPF (0.0-6.0) H 07/24/19 00:31 Urine RBC (Auto) 38.0 /HPF (0.0-6.0) 07/24/19 00:31 Urine Bacteria (Auto) 4+ /HPF (Negative) 07/24/19 00: Amorphous Crystals Few 07/24/19 00: Urine Mucus Few /HPF 07/24/19 00:31 - Imaging and Cardiology Imaging and Cardiology: Renal US: FINDINGS: Kidneys are normal in size, shape and position. Cortical thickness of each kidney is normal. Both kidneys are mildly to moderately hydronephrotic. Velazquez catheter in the bladder. IMPRESSION: 1. Mild to moderate bilateral hydronephrosis, of uncertain etiology. Kidneys are otherwise negative. CT Abdomen/Pelvis: FINDINGS: No acute disease in the lung bases. Liver, spleen and pancreas are negative. Both kidneys are again hydronephrotic, with proximal ureteral dilatation. There is suggestion of periaortic adenopathy, which is slightly more prominent than on the previous exam but less well seen because of lack of IV contrast. Pelvis The right colon is again abnormal, with considerable fecal material in the right and proximal transverse colon. Left colon appears unremarkable. However, I cannot identify a definite obstructing mass. Velazquez catheter is present in the urinary bladder. Prostate is enlarged, with slightly irregular thickening of the bladder base. IMPRESSION: 1. Slightly progressed bilateral hydronephrosis, probably due to obstruction at the ureterovesical junctions, with questionable bladder mass. Suggest urologic consultation. 2. Probably increasing retroperitoneal adenopathy. This is not well seen on this noncontrast exam. 3. Distended and feces filled right colon. Appearance raises the possibility of an obstructive process in the transverse colon. Again, this is not well demonstrated on this exam without IV or oral contrast. Assessment and Plan Assessment and plan: 59-year-old -[place] male who is an ongoing smoker with history of HIV, anal cancer, COPD, CAD status post CABG, hypertension, diverticulitis and TB (2006) who presents to [facility] ED with complaints of abdominal pain and diarrhea with intermittent blood in stool for the past 3 weeks. Bilateral hydronephrosis -Seen on today's CT Abdomen Pelvis -Velazquez Catheter present on arrival -N.p.o., on IVF -Urology consulted with plans to see patient in a.m. Colon Obstruction -CT abdomen pelvis showed: Distended and feces filled right colon. Appearance raises the possibility of an obstructive process in the transverse colon -General Surgery consulted with plans to see pt in AM GI Bleed -Hx diverticulitis -Status post colostomy and reversal in 07/2018 -Hemoccult positive -C/o intermittent blood in stool -H/H stable -May consider GI consult once pt has been evaluated by Gen Surg Urinary tract infection -Hx recurrent UTI -UA positive for UTI -urine wbc 57, positive for nitrates, large leukocyte, large blood -Urine culture pending -on IV Abx Hypokalemia -Potassium on admission 2.9 -Receiving potassium replacement -Continue to monitor replete prn WERO -Cr on admission 1.6 -Receiving IVF -Avoid nephrotoxic agents -Renal dose all meds -Nephrology consulted HTN -Monitor BP -Pt is NPO, Resume home hypertensive meds once medication reconciliation is completed and pt is no longer NPO -IV hydralazine when necessary COPD -Albuterol when necessary HIV Positive -Resume antiretroviral meds when patient is no longer n.p.o. and medication reconciliation is completed Tobacco abuse -Current every day smoker -Smokes half a pack a day -Counseled for cessation for 12 minutes -Nicotine patch when necessary DVT PPX -On SCD's -Hold systemic anticoagulation given patient's complain of blood in stool VTE prophylaxis?: Mechanical Plan of care discussed with patient/family: Yes <MADI DALTON - Last Filed: 07/25/19 06:18> History of Present Illness Date of admission: 07/25/19 04:00 Medications and Allergies Active Meds: Active Medications Acetaminophen (Tylenol) 650 mg PO Q4H PRN PRN Reason: Pain MILD(1-3)/Fever >100.5/PANIAGUA Albuterol (Proventil) 2.5 mg IH Q3HRT PRN PRN Reason: Shortness Of Breath Hydralazine HCl (Apresoline) 10 mg IV Q4H PRN PRN Reason: Blood Pressure Hydromorphone HCl (Dilaudid) 0.5 mg IV Q3H PRN PRN Reason: Pain , Severe (7-10) Sodium Chloride (Nacl 0.9% 1000 Ml) 1,000 mls @ 125 mls/hr IV DIRECT JASON Last Admin: 07/25/19 01:25 Dose: 125 mls/hr Documented by: Ceftriaxone Sodium (Rocephin/Ns 1 Gm/50 Ml) 1 gm in 50 mls @ 100 mls/hr IV Q24HR JASON; Protocol Metoclopramide HCl (Reglan) 5 mg IV Q6H PRN PRN Reason: Nausea And Vomiting Morphine Sulfate (Morphine) 2 mg IV Q4H PRN PRN Reason: Pain, Moderate (4-6) Nicotine (Habitrol) 14 mg TD QDAY JASON Ondansetron HCl (Zofran) 4 mg IV Q4H PRN PRN Reason: Nausea And Vomiting Potassium Chloride (K-Dur) 40 meq PO ONCE ONE Stop: 07/25/19 06:18 Sodium Chloride (Sodium Chloride Flush Syringe 10 Ml) 10 ml IV BID JASON Sodium Chloride (Sodium Chloride Flush Syringe 10 Ml) 10 ml IV PRN PRN PRN Reason: LINE FLUSH Exam - Constitutional Vitals: Temp Pulse Resp BP Pulse Ox 97.6 F 68 18 152/88 96 07/25/19 04:11 07/25/19 04:11 07/25/19 04:11 07/25/19 04:11 07/25/19 04:11 Results - Labs CBC & Chem 7: 07/24/19 18:57 07/24/19 23:21 Labs: Laboratory Last Values WBC 8.8 K/mm3 (4.5-11.0) 07/24/19 18:57 RBC 3.73 M/mm3 (3.65-5.03) 07/24/19 18:57 Hgb 12.6 gm/dl (11.8-15.2) 07/24/19 18:57 Hct 37.9 % (35.5-45.6) 07/24/19 18:57 MCV 102 fl (84-94) H 07/24/19 18:57 MCH 34 pg (28-32) H 07/24/19 18:57 MCHC 33 % (32-34) 07/24/19 18:57 RDW 15.2 % (13.2-15.2) 07/24/19 18:57 Plt Count 154 K/mm3 (140-440) 07/24/19 18:57 Lymph % (Auto) 5.8 % (13.4-35.0) L 07/24/19 18:57 Bowman % (Auto) 8.7 % (0.0-7.3) H 07/24/19 18:57 Eos % (Auto) 0.8 % (0.0-4.3) 07/24/19 18:57 Baso % (Auto) 1.2 % (0.0-1.8) 07/24/19 18:57 Lymph # 0.5 K/mm3 (1.2-5.4) L 07/24/19 18:57 Bowman # 0.8 K/mm3 (0.0-0.8) 07/24/19 18:57 Eos # 0.1 K/mm3 (0.0-0.4) 07/24/19 18:57 Baso # 0.1 K/mm3 (0.0-0.1) 07/24/19 18:57 Seg Neutrophils % 83.5 % (40.0-70.0) H 07/24/19 18:57 Seg Neutrophils # 7.3 K/mm3 (1.8-7.7) 07/24/19 18:57 Sodium 137 mmol/L (137-145) 07/24/19 23:21 Potassium 2.9 mmol/L (3.6-5.0) L* 07/24/19 23:21 Chloride 106.5 mmol/L (98-107) 07/24/19 23:21 Carbon Dioxide 17 mmol/L (22-30) L 07/24/19 23:21 Anion Gap 16 mmol/L 07/24/19 23:21 BUN 24 mg/dL (9-20) H 07/24/19 23:21 Creatinine 1.6 mg/dL (0.8-1.5) H D 07/24/19 23:21 Estimated GFR 54 ml/min 07/24/19 23:21 BUN/Creatinine Ratio 15 % 07/24/19 23:21 Glucose 107 mg/dL (75-100) H 07/24/19 23:21 Calcium 10.1 mg/dL (8.4-10.2) 07/24/19 23:21 Total Bilirubin 0.50 mg/dL (0.1-1.2) 07/24/19 18:57 AST 25 units/L (5-40) 07/24/19 18:57 ALT 18 units/L (7-56) 07/24/19 18:57 Alkaline Phosphatase 136 units/L (35-129) H 07/24/19 18:57 Total Protein 7.9 g/dL (6.3-8.2) 07/24/19 18:57 Albumin 4.1 g/dL (3.9-5) 07/24/19 18:57 Albumin/Globulin Ratio 1.1 % 07/24/19 18:57 Amylase 129 units/L (27-131) 07/24/19 18:57 Lipase 214 units/L (13-60) H 07/24/19 18:57 Urine Color Yellow (Yellow) 07/24/19 00:31 Urine Turbidity Cloudy (Clear) 07/24/19 00:31 Urine pH 7.0 (5.0-7.0) 07/24/19 00:31 Ur Specific [place] 1.008 (1.003-1.030) 07/24/19 00:31 Urine Protein 100 mg/dl mg/dL (Negative) 07/24/19 00:31 Urine Glucose (UA) Neg mg/dL (Negative) 07/24/19 00:31 Urine Ketones Neg mg/dL (Negative) 07/24/19 00:31 Urine Blood Lg (Negative) 07/24/19 00:31 Urine Nitrite Pos (Negative) 07/24/19 00:31 Urine Bilirubin Neg (Negative) 07/24/19 00:31 Urine Urobilinogen < 2.0 mg/dL (<2.0) 07/24/19 00:31 Ur Leukocyte Esterase Lg (Negative) 07/24/19 00:31 Urine WBC (Auto) 57.0 /HPF (0.0-6.0) H 07/24/19 00:31 Urine RBC (Auto) 38.0 /HPF (0.0-6.0) 07/24/19 00:31 Urine Bacteria (Auto) 4+ /HPF (Negative) 07/24/19 00:31 Amorphous Crystals Few 07/24/19 00:31 Urine Mucus Few /HPF 07/24/19 00:31 Assessment and Plan Assessment and plan: Patient seen and examined, case discussed with nurse practitioner, agree with the above, in addition consult GI
[2019-07-25] MEDS: POTASSIUM CHLORIDE 10 MEQ 10 MEQ/100 ML BAG IV SCH ×2 (03:28→04:31)
[2019-07-25] MEDS ORDERED: hydrALAZINE 20 MG/1 ML INJ IV PRN (03:32)
[2019-07-25] MEDS ORDERED: POTASSIUM CHLORIDE ER 20 MEQ TAB PO ONE (06:17)
[2019-07-25] MEDS: cefTRIAXone/NS 1 GM/50 ML 1 GM/50 ML BAG IV SCH (09:35)
[2019-07-25] MEDS: MORPHINE 2 MG/1 ML INJ IV PRN ×3 (09:36→23:32)
[2019-07-25] MEDS: NICOTINE 14 MG/24 HR PATCH TD SCH (09:36)
--- NOTE | 2019-07-25 10:30 | Gastroenterology Consultation ---
History of Present Illness - Reason for Consult Consult date: 07/25/19 blood in stool Requesting physician: MADI DALTON - History of Present Illness Patient is a 59 y/o male with PMH of nicotine dependence, HIV, herpetic lesions of rectum, anal cancer, COPD, CA/CAD (s/p CABG; EF 55-60%; stress test 07/19/19 negative), HTN, diverticulitis (s/p colostomy with reversal 07/2018), and TB (2006) who presented to ED with c/o abdominal pain and diarrhea with intermittent bright red blood in stool to which GI has been consulted. Abd CT upon admission, showed bilateral hydronephrosis with questionable bladder mass and distended/feces filled right colon which raises possibility for obstructive process in transverse colon but reading difficult due to no contrast. This morning patient was resting in bed w/o acute distress. Reports continued chronic intermittent abd pain and loose stools with small amount of bright red blood mixed with liquid stool, which is also chronic (BM vary from 7 to 20 daily per pt). Denies fever, CP, SOB, vomiting, hematemesis, melena, or constipation. No recent rectal trauma, antibiotic therapy, travel, or ill contacts. When asked about a hx of anal cancer patient denies knowing if he had cancer? States his last colonoscopy was at the beginning of 2018 prior to colostomy reversal at [place] but states he was scheduled to have another colonoscopy a couple of months ago but did not follow up to have it completed. Results of last colonoscopy unknown. Patient is noted to be a poor historian. No known hx of IBD. Upon exam, abdomen benign with no distention or tenderness and +BS. Past History Past Medical History: other (as per HPI) Past Surgical History: CABG, Other (Colostomy, reversal in 07/2018) Social history: smoking (Smokes half a pack a day) Family history: no significant family history Medications and Allergies Allergies Allergy/AdvReac Type Severity Reaction Status Date / Time lactose AdvReac Unknown Verified 07/17/19 12:17 lisinopril AdvReac Angioedema Verified 04/09/19 17:57 Home Medications Medication Instructions Recorded Confirmed Last Taken Type Acyclovir [Zovirax Tab] 800 mg PO Q12H #40 tab 04/09/19 07/16/19 Unknown Rx Acyclovir [Zovirax] 1 applic TP BID #2 oint...g. 04/09/19 07/16/19 Unknown Rx Ibuprofen [Motrin] 800 mg PO Q8HR #30 tablet 04/09/19 07/16/19 Unknown Rx Dicyclomine [Bentyl] 20 mg PO QID #10 tablet 05/17/19 07/16/19 Unknown Rx Docusate Sodium [Colace] 100 mg PO BID #30 capsule 05/17/19 07/16/19 Unknown Rx HYDROcodone/APAP 5-325 [[place] 1 each PO Q6HR PRN #14 tablet 05/17/19 07/16/19 Unknown Rx 5/325] levoFLOXacin [Levaquin TAB] 500 mg PO QDAY #7 tablet 05/17/19 07/16/19 Unknown Rx metroNIDAZOLE [Flagyl] 500 mg PO Q12HR #14 tab 05/17/19 07/16/19 Unknown Rx HYDROcodone/APAP 5-325 [[place] 1 - 2 each PO Q6HR PRN #14 tablet 05/27/19 07/16/19 Unknown Rx 5/325] Ketorolac [Toradol] 10 mg PO Q6H PRN #16 tablet 05/27/19 07/16/19 Unknown Rx Sulfamethoxazole/Trimethoprim 1 each PO BID #14 tablet 05/27/19 07/16/19 Unknown Rx [Bactrim DS TAB] Aspirin EC 325 mg PO QDAY #100 tablet 07/19/19 Unknown Rx AtorvaSTATin [Lipitor] 20 mg PO QHS #30 tablet 07/19/19 Unknown Rx Metoprolol [Lopressor TAB] 25 mg PO BID #60 tablet 07/19/19 Unknown Rx Nitrofurantoin [place]/M-Cryst 100 mg PO Q12HR #16 capsule 07/19/19 Unknown Rx [Macrobid CAP] Active Meds: Active Medications Acetaminophen (Tylenol) 650 mg PO Q4H PRN PRN Reason: Pain MILD(1-3)/Fever >100.5/PANIAGUA Albuterol (Proventil) 2.5 mg IH Q3HRT PRN PRN Reason: Shortness Of Breath Hydralazine HCl (Apresoline) 10 mg IV Q4H PRN PRN Reason: Blood Pressure Hydromorphone HCl (Dilaudid) 0.5 mg IV Q3H PRN PRN Reason: Pain , Severe (7-10) Sodium Chloride (Nacl 0.9% 1000 Ml) 1,000 mls @ 125 mls/hr IV DIRECT [facility] Last Admin: 07/25/19 01:25 Dose: 125 mls/hr Documented by: Ceftriaxone Sodium (Rocephin/Ns 1 Gm/50 Ml) 1 gm in 50 mls @ 100 mls/hr IV Q24HR [facility]; Protocol Last Admin: 07/25/19 09:35 Dose: 100 mls/hr Documented by: Metoclopramide HCl (Reglan) 5 mg IV Q6H PRN PRN Reason: Nausea And Vomiting Morphine Sulfate (Morphine) 2 mg IV Q4H PRN PRN Reason: Pain, Moderate (4-6) Last Admin: 07/25/19 09:36 Dose: 2 mg Documented by: Nicotine (Habitrol) 14 mg TD QDAY [facility] Last Admin: 07/25/19 09:36 Dose: 14 mg Documented by: Ondansetron HCl (Zofran) 4 mg IV Q4H PRN PRN Reason: Nausea And Vomiting Sodium Chloride (Sodium Chloride Flush Syringe 10 Ml) 10 ml IV BID [facility] Last Admin: 07/25/19 09:36 Dose: 10 ml Documented by: Sodium Chloride (Sodium Chloride Flush Syringe 10 Ml) 10 ml IV PRN PRN PRN Reason: LINE FLUSH medications reviewed/updated as required Review of Systems - Review of Systems All systems: negative Gastrointestinal: abdominal pain, diarrhea, other (blood in stool) Exam - Constitutional Vital Signs: Temp Pulse Resp BP Pulse Ox 97.6 F 68 18 152/88 96 07/25/19 04:11 07/25/19 04:11 07/25/19 04:11 07/25/19 04:11 07/25/19 04:11 General appearance: no acute distress - EENT Eyes: PERRL, EOM intact ENT: hearing intact - Respiratory Respiratory effort: normal - Cardiovascular Rhythm: regular - Gastrointestinal General gastrointestinal: Present: soft, non-tender, non-distended, normal bowel sounds, other (+scars from prior surgery) - Integumentary Integumentary: Present: warm, dry - Neurologic Neurological: alert and oriented x3 - Labs CBC & Chem 7: 07/24/19 18:57 07/24/19 23:21 Lab Results: Laboratory Results - last 24 hr 07/24/19 07/24/19 07/24/19 00:31 18:57 18:57 WBC 8.8 RBC 3.73 Hgb 12.6 Hct 37.9 MCV 102 H MCH 34 H MCHC 33 RDW 15.2 Plt Count 154 Lymph % (Auto) 5.8 L [place] % (Auto) 8.7 H Eos % (Auto) 0.8 Baso % (Auto) 1.2 Lymph # 0.5 L [place] # 0.8 Eos # 0.1 Baso # 0.1 Seg Neutrophils % 83.5 H Seg Neutrophils # 7.3 Sodium 136 L Potassium TNR Chloride 93.4 L Carbon Dioxide 18 L Anion Gap 31 BUN 66 H Creatinine 9.3 H Estimated GFR 7 BUN/Creatinine Ratio 7 Glucose 254 H Calcium 9.7 Total Bilirubin 0.50 AST 25 ALT 18 Alkaline Phosphatase 136 H Total Protein 7.9 Albumin 4.1 Albumin/Globulin Ratio 1.1 Amylase 129 Lipase 214 H Urine Color Yellow Urine Turbidity Cloudy Urine pH 7.0 Ur Specific [place] 1.008 Urine Protein 100 mg/dl Urine Glucose (UA) Neg Urine Ketones Neg Urine Blood Lg Urine Nitrite Pos Urine Bilirubin Neg Urine Urobilinogen < 2.0 Ur Leukocyte Esterase Lg Urine WBC (Auto) 57.0 H Urine RBC (Auto) 38.0 Urine Bacteria (Auto) 4+ Amorphous Crystals Few Urine Mucus Few 07/24/19 23:21 WBC RBC Hgb Hct MCV MCH MCHC RDW Plt Count Lymph % (Auto) [place] % (Auto) Eos % (Auto) Baso % (Auto) Lymph # [place] # Eos # Baso # Seg Neutrophils % Seg Neutrophils # Sodium 137 Potassium 2.9 L* Chloride 106.5 Carbon Dioxide 17 L Anion Gap 16 BUN 24 H Creatinine 1.6 H D Estimated GFR 54 BUN/Creatinine Ratio 15 Glucose 107 H Calcium 10.1 Total Bilirubin AST ALT Alkaline Phosphatase Total Protein Albumin Albumin/Globulin Ratio Amylase Lipase Urine Color Urine Turbidity Urine pH Ur Specific [place] Urine Protein Urine Glucose (UA) Urine Ketones Urine Blood Urine Nitrite Urine Bilirubin Urine Urobilinogen Ur Leukocyte Esterase Urine WBC (Auto) Urine RBC (Auto) Urine Bacteria (Auto) Amorphous Crystals Urine Mucus Assessment and Plan 1.abdominal pain-chronic 2.diarrhea-chronic 3.blood in stool 4.abnormal CT 5.H/o anal cancer?/herpatic lesions of rectum 6.H/o colostomy w/ reversal 2/2 diverticulitis -afebrile -WBC and H/H WNL -abd CT showed bilateral hydronephrosis with questionable bladder mass and distended/feces filled right colon which raises possibility for obstructive process in transverse colon but reading difficult due to no contrast -last colonoscopy 07/2018 prior to colostomy reversal at [place] per pt (results unknown/unavailable at this time) -etiology unclear- doubt obstruction due to mass given recent colonoscopy (possible narrowing/adhesions vs other) -request prior records from [place] -stool studies to r/o infection -recommend repeat abd CT scan with oral contrast for further evaluation -no plan for scope at this time, will consider based on clinical course/above results -surgery consult pending -okay for clear liquids today as tolerated if okay with surgery -continue antibiotics and supportive care -further recommendations to follow
--- NOTE | 2019-07-25 12:13 | Consultation ---
History of Present Illness - Reason for Consult Consult date: 07/25/19 acute renal failure - History of Present Illness HPI: 59 year old M with a PMH of HIV, Anal Cancer, COPD, CAD s/p CABG, HTN, TB who has been admitted to the [facility] with belly pain and diarrhea. Pt has also had some nausea. He says he had a livingston placed 3 weeks ago at [place] for prostate problem and retention which he still has. He currently denies any vomiting, fever, chest pain. He has been on Abx for UTI recently. ROS: As in HPI otherwise 12 point review of systems -ve Past History Past Medical History: other (as per HPI) Past Surgical History: CABG, Other (Colostomy, reversal in 07/2018) Social history: smoking (Smokes half a pack a day) Family history: no significant family history Medications and Allergies Allergies Allergy/AdvReac Type Severity Reaction Status Date / Time lactose AdvReac Unknown Verified 07/17/19 12:17 lisinopril AdvReac Angioedema Verified 04/09/19 17:57 Home Medications Medication Instructions Recorded Confirmed Last Taken Type Acyclovir [Zovirax Tab] 800 mg PO Q12H #40 tab 04/09/19 07/16/19 Unknown Rx Acyclovir [Zovirax] 1 applic TP BID #2 oint...g. 04/09/19 07/16/19 Unknown Rx Ibuprofen [Motrin] 800 mg PO Q8HR #30 tablet 04/09/19 07/16/19 Unknown Rx Dicyclomine [Bentyl] 20 mg PO QID #10 tablet 05/17/19 07/16/19 Unknown Rx Docusate Sodium [Colace] 100 mg PO BID #30 capsule 05/17/19 07/16/19 Unknown Rx HYDROcodone/APAP 5-325 [[place] 1 each PO Q6HR PRN #14 tablet 05/17/19 07/16/19 Unknown Rx 5/325] levoFLOXacin [Levaquin TAB] 500 mg PO QDAY #7 tablet 05/17/19 07/16/19 Unknown Rx metroNIDAZOLE [Flagyl] 500 mg PO Q12HR #14 tab 05/17/19 07/16/19 Unknown Rx HYDROcodone/APAP 5-325 [[place] 1 - 2 each PO Q6HR PRN #14 tablet 05/27/19 07/16/19 Unknown Rx 5/325] Ketorolac [Toradol] 10 mg PO Q6H PRN #16 tablet 05/27/19 07/16/19 Unknown Rx Sulfamethoxazole/Trimethoprim 1 each PO BID #14 tablet 05/27/19 07/16/19 Unknown Rx [Bactrim DS TAB] Aspirin EC 325 mg PO QDAY #100 tablet 07/19/19 Unknown Rx AtorvaSTATin [Lipitor] 20 mg PO QHS #30 tablet 07/19/19 Unknown Rx Metoprolol [Lopressor TAB] 25 mg PO BID #60 tablet 07/19/19 Unknown Rx Nitrofurantoin [place]/M-Cryst 100 mg PO Q12HR #16 capsule 07/19/19 Unknown Rx [Macrobid CAP] Active Meds: Active Medications Acetaminophen (Tylenol) 650 mg PO Q4H PRN PRN Reason: Pain MILD(1-3)/Fever >100.5/PANIAGUA Albuterol (Proventil) 2.5 mg IH Q3HRT PRN PRN Reason: Shortness Of Breath Hydralazine HCl (Apresoline) 10 mg IV Q4H PRN PRN Reason: Blood Pressure Hydromorphone HCl (Dilaudid) 0.5 mg IV Q3H PRN PRN Reason: Pain , Severe (7-10) Sodium Chloride (Nacl 0.9% 1000 Ml) 1,000 mls @ 125 mls/hr IV DIRECT [facility] Last Admin: 07/25/19 12:00 Dose: 125 mls/hr Documented by: Ceftriaxone Sodium (Rocephin/Ns 1 Gm/50 Ml) 1 gm in 50 mls @ 100 mls/hr IV Q24HR [facility]; Protocol Last Admin: 07/25/19 09:35 Dose: 100 mls/hr Documented by: Metoclopramide HCl (Reglan) 5 mg IV Q6H PRN PRN Reason: Nausea And Vomiting Morphine Sulfate (Morphine) 2 mg IV Q4H PRN PRN Reason: Pain, Moderate (4-6) Last Admin: 07/25/19 09:36 Dose: 2 mg Documented by: Nicotine (Habitrol) 14 mg TD QDAY [facility] Last Admin: 07/25/19 09:36 Dose: 14 mg Documented by: Ondansetron HCl (Zofran) 4 mg IV Q4H PRN PRN Reason: Nausea And Vomiting Sodium Chloride (Sodium Chloride Flush Syringe 10 Ml) 10 ml IV BID [facility] Last Admin: 07/25/19 09:36 Dose: 10 ml Documented by: Sodium Chloride (Sodium Chloride Flush Syringe 10 Ml) 10 ml IV PRN PRN PRN Reason: LINE FLUSH Exam - Vital Signs Vital signs: Vital Signs Temp Pulse Resp BP Pulse Ox 97.5 F L 50 L 16 154/83 99 07/24/19 15:07 07/24/19 15:07 07/24/19 15:07 07/24/19 15:07 07/24/19 15:07 - Physical Exam Narrative exam: Gen: NAD, Awake, Alert, Orientated HEENT: NCAT, EOMI, PERRL, OP Clear Neck: supple, no adenopathy, no thyromegaly, no JVD CVS/Heart: RRR, normal S1S2, pulses present bilaterally Chest/Lungs: CTA B, Symmetrical chest expansion, good air entry bilaterally GI/Abdomen: soft, diffuse tendernes, good bowel sounds, no guarding or rebound /Bladder: no suprapubic tenderness, no CVA or paraspinal tenderness Extermity/Skin: no c/c/e, no obvious rash MSK: FROM x 4 Neuro: CN 2-12 grossly intact, no new focal deficits Psych: calm Results - Lab Results 07/24/19 18:57 07/24/19 23:21 Most recent lab results Calcium 10.1 mg/dL (8.4-10.2) 07/24/19 23:21 Assessment and Plan Acute Kidney injury due to obstructive uropathy, pre-renal/ATN from diarrhea, NSAIDs: Diarrhea: Metabolic acidosis: Normocytic anemia: UTI: Hypokalemia: HTN: COPD: HIV: -Has indwelling livingston since 3 weeks, BL hydronephrosis seen on imaging, urology being consulted, start flomax -Check Urine studies -Cr improving with NS at 125 mls/hr -Start Sodium bicarb tabs for acidosis. -Replace K gently in WERO -Check Mg -Renally dose all meds -Avoid Nephrotoxic meds Black Felipe MD [phone]
--- NOTE | 2019-07-25 13:04 | Progress Note ---
Assessment and Plan rectal cnacer livingston clear hydro f/u estefany onc eval may need stents eventually Subjective Date of service: 07/25/19 Objective - Constitutional Vitals: Vital Signs - 12hr 07/25/19 07/25/19 07/25/19 01:15 01:30 01:45 Temperature Pulse Rate 74 69 73 Respiratory 23 13 12 Rate Blood Pressure 147/82 151/85 146/83 O2 Sat by Pulse 100 100 100 Oximetry 07/25/19 07/25/19 07/25/19 02:00 02:15 02:30 Temperature Pulse Rate 65 72 66 Respiratory 12 16 13 Rate Blood Pressure 145/88 150/84 149/93 O2 Sat by Pulse 100 100 100 Oximetry 07/25/19 07/25/19 07/25/19 02:45 03:00 03:15 Temperature Pulse Rate 71 62 66 Respiratory 14 12 14 Rate Blood Pressure 150/92 144/85 145/87 O2 Sat by Pulse 100 99 98 Oximetry 07/25/19 07/25/19 07/25/19 03:30 03:41 04:11 Temperature 97.6 F Pulse Rate 69 72 68 Respiratory 13 15 18 Rate Blood Pressure 140/84 144/85 152/88 O2 Sat by Pulse 100 100 96 Oximetry 07/25/19 12:25 Temperature 98.7 F Pulse Rate 66 Respiratory 20 Rate Blood Pressure 113/82 O2 Sat by Pulse 100 Oximetry General appearance: Present: no acute distress, cachectic - Neck Neck: supple - Respiratory Respiratory effort: normal - Gastrointestinal General gastrointestinal: Present: soft Rectal Exam: nodular - Labs CBC & Chem 7: 07/24/19 18:57 07/24/19 23:21 Labs: Abnormal lab results 07/24/19 07/24/19 07/24/19 Range/Units 00:31 18:57 18:57 MCV 102 H (84-94) fl MCH 34 H (28-32) pg Lymph % (Auto) 5.8 L (13.4-35.0) % [place] % (Auto) 8.7 H (0.0-7.3) % Lymph # 0.5 L (1.2-5.4) K/mm3 Seg Neutrophils % 83.5 H (40.0-70.0) % Sodium 136 L (137-145) mmol/L Potassium (3.6-5.0) mmol/L Chloride 93.4 L (98-107) mmol/L Carbon Dioxide 18 L (22-30) mmol/L BUN 66 H (9-20) mg/dL Creatinine 9.3 H (0.8-1.5) mg/dL Glucose 254 H (75-100) mg/dL Alkaline Phosphatase 136 H (35-129) units/L Lipase 214 H (13-60) units/L Urine WBC (Auto) 57.0 H (0.0-6.0) /HPF 07/24/19 Range/Units 23:21 MCV (84-94) fl MCH (28-32) pg Lymph % (Auto) (13.4-35.0) % [place] % (Auto) (0.0-7.3) % Lymph # (1.2-5.4) K/mm3 Seg Neutrophils % (40.0-70.0) % Sodium (137-145) mmol/L Potassium 2.9 L* (3.6-5.0) mmol/L Chloride (98-107) mmol/L Carbon Dioxide 17 L (22-30) mmol/L BUN 24 H (9-20) mg/dL Creatinine 1.6 H D (0.8-1.5) mg/dL Glucose 107 H (75-100) mg/dL Alkaline Phosphatase (35-129) units/L Lipase (13-60) units/L Urine WBC (Auto) (0.0-6.0) /HPF Medications & Allergies - Medications Allergies/Adverse Reactions: Allergies lactose Adverse Reaction (Verified 07/17/19 12:17) Unknown lisinopril Adverse Reaction (Verified 04/09/19 17:57) Angioedema Home Medications: Home Medications Medication Instructions Recorded Confirmed Last Taken Type Acyclovir [Zovirax Tab] 800 mg PO Q12H #40 tab 04/09/19 07/16/19 Unknown Rx Acyclovir [Zovirax] 1 applic TP BID #2 oint...g. 04/09/19 07/16/19 Unknown Rx Ibuprofen [Motrin] 800 mg PO Q8HR #30 tablet 04/09/19 07/16/19 Unknown Rx Dicyclomine [Bentyl] 20 mg PO QID #10 tablet 05/17/19 07/16/19 Unknown Rx Docusate Sodium [Colace] 100 mg PO BID #30 capsule 05/17/19 07/16/19 Unknown Rx HYDROcodone/APAP 5-325 [[place] 1 each PO Q6HR PRN #14 tablet 05/17/19 07/16/19 Unknown Rx 5/325] levoFLOXacin [Levaquin TAB] 500 mg PO QDAY #7 tablet 05/17/19 07/16/19 Unknown Rx metroNIDAZOLE [Flagyl] 500 mg PO Q12HR #14 tab 05/17/19 07/16/19 Unknown Rx HYDROcodone/APAP 5-325 [[place] 1 - 2 each PO Q6HR PRN #14 tablet 05/27/19 1 09/16/18 Unknown Rx 5/325] Ketorolac [Toradol] 10 mg PO Q6H PRN #16 tablet 05/27/19 07/16/19 Unknown Rx Sulfamethoxazole/Trimethoprim 1 each PO BID #14 tablet 05/27/19 07/16/19 Unknown Rx [Bactrim DS TAB] Aspirin EC 325 mg PO QDAY #100 tablet 07/19/19 Unknown Rx AtorvaSTATin [Lipitor] 20 mg PO QHS #30 tablet 07/19/19 Unknown Rx Metoprolol [Lopressor TAB] 25 mg PO BID #60 tablet 07/19/19 Unknown Rx Nitrofurantoin [place]/M-Cryst 100 mg PO Q12HR #16 capsule 07/19/19 Unknown Rx [Macrobid CAP] Active Medications: Generic Name Dose Route Start Last Admin Trade Name Freq PRN Reason Stop Dose Admin Acetaminophen 650 mg 07/25/19 02:42 Tylenol PO Q4H PRN Pain MILD(1-3)/Fever >100.5/PANIAGUA Albuterol 2.5 mg 07/25/19 02:42 Proventil IH Q3HRT PRN Shortness Of Breath Hydralazine HCl 10 mg 07/25/19 03:32 Apresoline IV Q4H PRN Blood Pressure Hydromorphone HCl 0.5 mg 07/25/19 02:42 Dilaudid IV Q3H PRN Pain , Severe (7-10) Sodium Chloride 1,000 mls @ 125 mls/hr 07/24/19 23:45 07/25/19 12:00 Nacl 0.9% 1000 Ml IV 125 mls/hr DIRECT [facility] Administration Ceftriaxone Sodium 1 gm in 50 mls @ 100 mls/hr 07/25/19 10:00 07/25/19 09:35 Rocephin/Ns 1 Gm/50 Ml IV 100 mls/hr Q24HR [facility] Administration Protocol Metoclopramide HCl 5 mg 07/25/19 02:42 Reglan IV Q6H PRN Nausea And Vomiting Morphine Sulfate 2 mg 07/25/19 02:42 07/25/19 09:36 Morphine IV 2 mg Q4H PRN Administration Pain, Moderate (4-6) Nicotine 14 mg 07/25/19 10:00 07/25/19 09:36 Habitrol TD 14 mg QDAY [facility] Administration Ondansetron HCl 4 mg 07/25/19 02:42 Zofran IV Q4H PRN Nausea And Vomiting Sodium Chloride 10 ml 07/25/19 10:00 07/25/19 09:36 Sodium Chloride Flush Syringe 10 Ml IV 10 ml BID [facility] Administration Sodium Chloride 10 ml 07/25/19 02:42 Sodium Chloride Flush Syringe 10 Ml IV PRN PRN LINE FLUSH
--- NOTE | 2019-07-25 13:40 | Progress Note ---
Assessment and Plan Assessment and plan: Patient is a 59-year-old -Stateless man with a history of tobacco dependency, HIV, ?Anorectal CA, COPD, CAD status post CABG, hypertension, diverticulitis colostomy reversal and TB (2006) who presents to [facility] ED with abdominal pains and diarrhea for the past 3 weeks. Of note patient is a poor hi storian. Review of medical record shows patient was recently discharged on 07/19/19 after NSTEMI and UTI treatment. He was given a prescription for oral antibiotics to treat the urinary tract infection. Cr was 1.0 on 07/19/19. His Cr on presentation was 9.3 on 07/24/2019. Velazquez was placed and next day Cr 1.6. * CT abd/pelvis without contrast IMPRESSION: 1. Slightly progressed bilateral hydronephrosis, probably due to obstruction at the ureterovesical junctions, with questionable bladder mass. Suggest urologic consultation. 2. Probably increasing retroperitoneal adenopathy. This is not well seen on this noncontrast exam. 3. Distended and feces filled right colon. Appearance raises the possibility of an obstructive process in the transverse colon. Again, this is not well demonstrated on this exam without IV or oral contrast. * Renal U/S IMPRESSION: 1. Mild to moderate bilateral hydronephrosis, of uncertain etiology. Kidneys are otherwise negative. Bilateral hydronephrosis -Seen on today's CT Abdomen Pelvis -Velazquez Catheter present on arrival -N.p.o., on IVF -Urology consulted with plans to see patient in a.m. Colon Obstruction -CT abdomen pelvis showed: Distended and feces filled right colon. Appearance raises the possibility of an obstructive process in the transverse colon -General Surgery consulted with plans to see pt in AM Acute on chronic anemia due to GI Bleed -Hx diverticulitis -Status post colostomy and reversal in 07/2018 -Hemoccult positive -C/o intermittent blood in stool -H/H stable -May consider GI consult once pt has been evaluated by Gen Surg Urinary tract infection -Hx recurrent UTI -UA positive for UTI -urine wbc 57, positive for nitrates, large leukocyte, large blood -Urine culture pending -on IV Abx Hypokalemia -Potassium on admission 2.9 -Receiving potassium replacement -Continue to monitor replete prn WERO, obstructive uropathy and vasomotor nephropathy -Cr on admission 1.6 -Receiving IVF -Avoid nephrotoxic agents -Renal dose all meds -Nephrology consulted HTN -Monitor BP -Pt is NPO, Resume home hypertensive meds once medication reconciliation is completed and pt is no longer NPO -IV hydralazine when necessary COPD by history -Albuterol when necessary HIV Positive by history -Resume antiretroviral meds when patient is no longer n.p.o. and medication reconciliation is completed Tobacco abuse -Current every day smoker -Smokes half a pack a day -Counseled for cessation for 12 minutes -Nicotine patch when necessary DVT PPX -On SCD's -Hold systemic anticoagulation given patient's complain of blood in stool Moderate Malnutrition -treat the underlying obstruction Need [facility] medical records History Interval history: Patient was seen and examined. Follow-up on current diagnosis of ARF. Overnight uneventful as no events directly reported to me. Patient denies any chest pain, shortness breath, nausea/vomiting or severe headaches. Imaging, nursing note, chart, labs and old chart reviewed. Discussed with patient. Hospitalist Physical - Physical exam Narrative exam: Gen: cachetic, chronically ill appearing, NAD, Awake, Alert, Orientated HEENT: NCAT, EOMI, PERRL, OP Clear Neck: supple, no adenopathy, no thyromegaly, no JVD CVS/Heart: RRR, normal S1S2, pulses present bilaterally Chest/Lungs: CTA B, Symmetrical chest expansion, good air entry bilaterally GI/Abdomen: soft, diffuse tendernes, good bowel sounds, no guarding or rebound /Bladder: no suprapubic tenderness, no CVA or paraspinal tenderness Extermity/Skin: no c/c/e, no obvious rash MSK: FROM x 4 Neuro: CN 2-12 grossly intact, no new focal deficits Psych: calm - Constitutional Vitals: Temp Pulse Resp BP Pulse Ox 98.7 F 66 20 113/82 100 07/25/19 12:25 07/25/19 12:25 07/25/19 12:25 07/25/19 12:25 07/25/19 12:25 General appearance: Present: no acute distress, cachectic Results - Labs CBC & Chem 7: 07/24/19 18:57 07/24/19 23:21 Labs: Laboratory Last Values WBC 8.8 K/mm3 (4.5-11.0) 07/24/19 18:57 RBC 3.73 M/mm3 (3.65-5.03) 07/24/19 18:57 Hgb 12.6 gm/dl (11.8-15.2) 07/24/19 18:57 Hct 37.9 % (35.5-45.6) 07/24/19 18:57 MCV 102 fl (84-94) H 07/24/19 18:57 MCH 34 pg (28-32) H 07/24/19 18:57 MCHC 33 % (32-34) 07/24/19 18:57 RDW 15.2 % (13.2-15.2) 07/24/19 18:57 Plt Count 154 K/mm3 (140-440) 07/24/19 18:57 Lymph % (Auto) 5.8 % (13.4-35.0) L 07/24/19 18:57 Whitley % (Auto) 8.7 % (0.0-7.3) H 07/24/19 18:57 Eos % (Auto) 0.8 % (0.0-4.3) 07/24/19 18:57 Baso % (Auto) 1.2 % (0.0-1.8) 07/24/19 18:57 Lymph # 0.5 K/mm3 (1.2-5.4) L 07/24/19 18:57 Whitley # 0.8 K/mm3 (0.0-0.8) 07/24/19 18:57 Eos # 0.1 K/mm3 (0.0-0.4) 07/24/19 18:57 Baso # 0.1 K/mm3 (0.0-0.1) 07/24/19 18:57 Seg Neutrophils % 83.5 % (40.0-70.0) H 07/24/19 18:57 Seg Neutrophils # 7.3 K/mm3 (1.8-7.7) 07/24/19 18:57 Sodium 137 mmol/L (137-145) 07/24/19 23:21 Potassium 2.9 mmol/L (3.6-5.0) L* 07/24/19 23:21 Chloride 106.5 mmol/L (98-107) 07/24/19 23:21 Carbon Dioxide 17 mmol/L (22-30) L 07/24/19 23:21 Anion Gap 16 mmol/L 07/24/19 23:21 BUN 24 mg/dL (9-20) H 07/24/19 23:21 Creatinine 1.6 mg/dL (0.8-1.5) H D 07/24/19 23:21 Estimated GFR 54 ml/min 07/24/19 23:21 BUN/Creatinine Ratio 15 % 07/24/19 23:21 Glucose 107 mg/dL (75-100) H 07/24/19 23:21 Calcium 10.1 mg/dL (8.4-10.2) 07/24/19 23:21 Total Bilirubin 0.50 mg/dL (0.1-1.2) 07/24/19 18:57 AST 25 units/L (5-40) 07/24/19 18:57 ALT 18 units/L (7-56) 07/24/19 18:57 Alkaline Phosphatase 136 units/L (35-129) H 07/24/19 18:57 Total Protein 7.9 g/dL (6.3-8.2) 07/24/19 18:57 Albumin 4.1 g/dL (3.9-5) 07/24/19 18:57 Albumin/Globulin Ratio 1.1 % 07/24/19 18:57 Amylase 129 units/L (27-131) 07/24/19 18:57 Lipase 214 units/L (13-60) H 07/24/19 18:57 Urine Color Yellow (Yellow) 07/24/19 00:31 Urine Turbidity Cloudy (Clear) 07/24/19 00:31 Urine pH 7.0 (5.0-7.0) 07/24/19 00:31 Ur Specific [place] 1.008 (1.003-1.030) 07/24/19 00:31 Urine Protein 100 mg/dl mg/dL (Negative) 07/24/19 00:31 Urine Glucose (UA) Neg mg/dL (Negative) 07/24/19 00:31 Urine Ketones Neg mg/dL (Negative) 07/24/19 00:31 Urine Blood Lg (Negative) 07/24/19 00:31 Urine Nitrite Pos (Negative) 07/24/19 00:31 Urine Bilirubin Neg (Negative) 07/24/19 00:31 Urine Urobilinogen < 2.0 mg/dL (<2.0) 07/24/19 00:31 Ur Leukocyte Esterase Lg (Negative) 07/24/19 00:31 Urine WBC (Auto) 57.0 /HPF (0.0-6.0) H 07/24/19 00:31 Urine RBC (Auto) 38.0 /HPF (0.0-6.0) 07/24/19 00:31 Urine Bacteria (Auto) 4+ /HPF (Negative) 07/24/19 00:31 Amorphous Crystals Few 07/24/19 00:31 Urine Mucus Few /HPF 07/24/19 00:31 Active Medications - Current Medications Current Medications: Generic Name Dose Route Start Last Admin Trade Name Freq PRN Reason Stop Dose Admin Acetaminophen 650 mg 07/25/19 02:42 Tylenol PO Q4H PRN Pain MILD(1-3)/Fever >100.5/PANIAGUA Albuterol 2.5 mg 07/25/19 02:42 Proventil IH Q3HRT PRN Shortness Of Breath Hydralazine HCl 10 mg 07/25/19 03:32 Apresoline IV Q4H PRN Blood Pressure Hydromorphone HCl 0.5 mg 07/25/19 02:42 Dilaudid IV Q3H PRN Pain , Severe (7-10) Sodium Chloride 1,000 mls @ 125 mls/hr 07/24/19 23:45 07/25/19 12:00 Nacl 0.9% 1000 Ml IV 125 mls/hr DIRECT JASON Administration Ceftriaxone Sodium 1 gm in 50 mls @ 100 mls/hr 07/25/19 10:00 07/25/19 09:35 Rocephin/Ns 1 Gm/50 Ml IV 100 mls/hr Q24HR JASON Administration Protocol Metoclopramide HCl 5 mg 07/25/19 02:42 Reglan IV Q6H PRN Nausea And Vomiting Morphine Sulfate 2 mg 07/25/19 02:42 07/25/19 09:36 Morphine IV 2 mg Q4H PRN Administration Pain, Moderate (4-6) Nicotine 14 mg 07/25/19 10:00 07/25/19 09:36 Habitrol TD 14 mg QDAY JASON Administration Ondansetron HCl 4 mg 07/25/19 02:42 Zofran IV Q4H PRN Nausea And Vomiting Sodium Chloride 10 ml 07/25/19 10:00 07/25/19 09:36 Sodium Chloride Flush Syringe 10 Ml IV 10 ml BID JASON Administration Sodium Chloride 10 ml 07/25/19 02:42 Sodium Chloride Flush Syringe 10 Ml IV PRN PRN LINE FLUSH
--- NOTE | 2019-07-25 14:58 | Consultation ---
History of Present Illness Consult date: 07/25/19 Chief complaint: Diarrhea, rectal bleeding - History of present illness History of present illness: Patient is a 59-year-old male with a history of exploratory laparotomy with Larsen's procedure for perforated diverticulitis in 2016, status post subsequent reversal of colostomy in 07/2018 who presented to the emergency room with complaints of chronic diarrhea and bleeding per rectum. The patient states that this has been ongoing for a long time. He states that his bowel movements are always loose and sometimes mixed with reddish orange-appearing blood. He has constant but mild right-sided abdominal discomfort which is exacerbated by eating. He has been tolerating a regular diet but has a poor appetite. He denies f/c, nausea, vomiting, chest pain, shortness of breath. He has been following up with his colorectal surgeon Dr. Lawson at [place] with last colonoscopy performed sometime in 2018. He states he has not had a colonoscopy since the colostomy reversal. He states that he has had to undergo dilatation of his anastomosis 3 times since the surgery due to narrowing. He states that him and his colorectal surgeon discussed another colostomy, however the patient wants to avoid this at all costs. He has been seen at [facility] in March, April, May, June of 2019 and now July. In this time he has had 3 CAT scans, all of which show chronic stable dilatation of the right colon just proximal to his colorectal anastomosis. He was seen last week at [place] and found to have hydronephrosis and bladder outlet obstruction due to enlarged prostate for which a Livingston catheter was inserted. Past History Past Medical History: other (perforated diverticulitis) Past Surgical History: CABG, Other (Exlap and Larsen's procedure 2016, colostomy reversal in 07/2018) Social history: smoking (Smokes half a pack a day) Family history: no significant family history Medications and Allergies Allergies Allergy/AdvReac Type Severity Reaction Status Date / Time lactose AdvReac Unknown Verified 07/17/19 12:17 lisinopril AdvReac Angioedema Verified 04/09/19 17:57 Home Medications Medication Instructions Recorded Confirmed Last Taken Type Acyclovir [Zovirax Tab] 800 mg PO Q12H #40 tab 04/09/19 07/16/19 Unknown Rx Acyclovir [Zovirax] 1 applic TP BID #2 oint...g. 04/09/19 07/16/19 Unknown Rx Ibuprofen [Motrin] 800 mg PO Q8HR #30 tablet 04/09/19 07/16/19 Unknown Rx Dicyclomine [Bentyl] 20 mg PO QID #10 tablet 05/17/19 07/16/19 Unknown Rx Docusate Sodium [Colace] 100 mg PO BID #30 capsule 05/17/19 07/16/19 Unknown Rx HYDROcodone/APAP 5-325 [[place] 1 each PO Q6HR PRN #14 tablet 05/17/19 07/16/19 Unknown Rx 5/325] levoFLOXacin [Levaquin TAB] 500 mg PO QDAY #7 tablet 05/17/19 07/16/19 Unknown Rx metroNIDAZOLE [Flagyl] 500 mg PO Q12HR #14 tab 05/17/19 07/16/19 Unknown Rx HYDROcodone/APAP 5-325 [[place] 1 - 2 each PO Q6HR PRN #14 tablet 05/27/1907/16 Unknown Rx 5/325] Ketorolac [Toradol] 10 mg PO Q6H PRN #16 tablet 05/27/19 07/16/19 Unknown Rx Sulfamethoxazole/Trimethoprim 1 each PO BID #14 tablet 05/27/19 07/16/19 Unknown Rx [Bactrim DS TAB] Aspirin EC 325 mg PO QDAY #100 tablet 07/19/19 Unknown Rx AtorvaSTATin [Lipitor] 20 mg PO QHS #30 tablet 07/19/19 Unknown Rx Metoprolol [Lopressor TAB] 25 mg PO BID #60 tablet 07/19/19 Unknown Rx Nitrofurantoin Custer/M-Cryst 100 mg PO Q12HR #16 capsule 07/19/19 Unknown Rx [Macrobid CAP] Active Meds: Active Medications Acetaminophen (Tylenol) 650 mg PO Q4H PRN PRN Reason: Pain MILD(1-3)/Fever >100.5/PANIAGUA Albuterol (Proventil) 2.5 mg IH Q3HRT PRN PRN Reason: Shortness Of Breath Hydralazine HCl (Apresoline) 10 mg IV Q4H PRN PRN Reason: Blood Pressure Hydromorphone HCl (Dilaudid) 0.5 mg IV Q3H PRN PRN Reason: Pain , Severe (7-10) Sodium Chloride (Nacl 0.9% 1000 Ml) 1,000 mls @ 125 mls/hr IV DIRECT [facility] Last Admin: 07/25/19 12:00 Dose: 125 mls/hr Documented by: Ceftriaxone Sodium (Rocephin/Ns 1 Gm/50 Ml) 1 gm in 50 mls @ 100 mls/hr IV Q24HR [facility]; Protocol Last Admin: 07/25/19 09:35 Dose: 100 mls/hr Documented by: Metoclopramide HCl (Reglan) 5 mg IV Q6H PRN PRN Reason: Nausea And Vomiting Morphine Sulfate (Morphine) 2 mg IV Q4H PRN PRN Reason: Pain, Moderate (4-6) Last Admin: 07/25/19 09:36 Dose: 2 mg Documented by: Nicotine (Habitrol) 14 mg TD QDAY [facility] Last Admin: 07/25/19 09:36 Dose: 14 mg Documented by: Ondansetron HCl (Zofran) 4 mg IV Q4H PRN PRN Reason: Nausea And Vomiting Sodium Chloride (Sodium Chloride Flush Syringe 10 Ml) 10 ml IV BID [facility] Last Admin: 07/25/19 09:36 Dose: 10 ml Documented by: Sodium Chloride (Sodium Chloride Flush Syringe 10 Ml) 10 ml IV PRN PRN PRN Reason: LINE FLUSH Review of Systems All systems: negative (10 point review of systems was performed and negative except for that listed in HPI) Exam Vital Signs Temp Pulse Resp BP Pulse Ox 97.5 F L 50 L 16 154/83 99 07/24/19 15:07 07/24/19 15:07 07/24/19 15:07 07/24/19 15:07 07/24/19 15:07 Narrative exam: Gen.: Awake, alert, oriented 3. No apparent distress. ENT: No scleral icterus or conjunctival pallor CV: S1, S2 present Respiratory: No audible wheezes Abdomen: Soft, nondistended, nontender. Mild fullness in the right side of the abdomen. No rebound, rigidity, guarding. Well-healed surgical scars Extremities: No clubbing, cyanosis, edema : Livingston with yellow urine Results - Labs 07/24/19 18:57 07/24/19 23:21 Abnormal lab results 07/24/19 07/24/19 07/24/19 Range/Units 00:31 18:57 18:57 MCV 102 H (84-94) fl MCH 34 H (28-32) pg Lymph % (Auto) 5.8 L (13.4-35.0) % [place] % (Auto) 8.7 H (0.0-7.3) % Lymph # 0.5 L (1.2-5.4) K/mm3 Seg Neutrophils % 83.5 H (40.0-70.0) % Sodium 136 L (137-145) mmol/L Potassium (3.6-5.0) mmol/L Chloride 93.4 L (98-107) mmol/L Carbon Dioxide 18 L (22-30) mmol/L BUN 66 H (9-20) mg/dL Creatinine 9.3 H (0.8-1.5) mg/dL Glucose 254 H (75-100) mg/dL Alkaline Phosphatase 136 H (35-129) units/L Lipase 214 H (13-60) units/L Urine WBC (Auto) 57.0 H (0.0-6.0) /HPF 07/24/19 Range/Units 23:21 MCV (84-94) fl MCH (28-32) pg Lymph % (Auto) (13.4-35.0) % [place] % (Auto) (0.0-7.3) % Lymph # (1.2-5.4) K/mm3 Seg Neutrophils % (40.0-70.0) % Sodium (137-145) mmol/L Potassium 2.9 L* (3.6-5.0) mmol/L Chloride (98-107) mmol/L Carbon Dioxide 17 L (22-30) mmol/L BUN 24 H (9-20) mg/dL Creatinine 1.6 H D (0.8-1.5) mg/dL Glucose 107 H (75-100) mg/dL Alkaline Phosphatase (35-129) units/L Lipase (13-60) units/L Urine WBC (Auto) (0.0-6.0) /HPF Diabetes panel 07/24/19 07/24/19 Range/Units 18:57 23:21 Sodium 136 L 137 (137-145) mmol/L Potassium TNR 2.9 L* Chloride 93.4 L 106.5 (98-107) mmol/L Carbon Dioxide 18 L 17 L (22-30) mmol/L BUN 66 H 24 H (9-20) mg/dL Creatinine 9.3 H 1.6 H D (0.8-1.5) mg/dL Glucose 254 H 107 H (75-100) mg/dL Calcium 9.7 10.1 (8.4-10.2) mg/dL AST 25 (5-40) units/L ALT 18 (7-56) units/L Alkaline Phosphatase 136 H (35-129) units/L Total Protein 7.9 (6.3-8.2) g/dL Albumin 4.1 (3.9-5) g/dL Calcium panel 07/24/19 07/24/19 Range/Units 18:57 23:21 Calcium 9.7 10.1 (8.4-10.2) mg/dL Albumin 4.1 (3.9-5) g/dL Pituitary panel 07/24/19 07/24/19 Range/Units 18:57 23:21 Sodium 136 L 137 (137-145) mmol/L Potassium TNR 2.9 L* Chloride 93.4 L 106.5 (98-107) mmol/L Carbon Dioxide 18 L 17 L (22-30) mmol/L BUN 66 H 24 H (9-20) mg/dL Creatinine 9.3 H 1.6 H D (0.8-1.5) mg/dL Glucose 254 H 107 H (75-100) mg/dL Calcium 9.7 10.1 (8.4-10.2) mg/dL Adrenal panel 07/24/19 07/24/19 Range/Units 18:57 23:21 Sodium 136 L 137 (137-145) mmol/L Potassium TNR 2.9 L* Chloride 93.4 L 106.5 (98-107) mmol/L Carbon Dioxide 18 L 17 L (22-30) mmol/L BUN 66 H 24 H (9-20) mg/dL Creatinine 9.3 H 1.6 H D (0.8-1.5) mg/dL Glucose 254 H 107 H (75-100) mg/dL Calcium 9.7 10.1 (8.4-10.2) mg/dL Total Bilirubin 0.50 (0.1-1.2) mg/dL AST 25 (5-40) units/L ALT 18 (7-56) units/L Alkaline Phosphatase 136 H (35-129) units/L Total Protein 7.9 (6.3-8.2) g/dL Albumin 4.1 (3.9-5) g/dL - Imaging CT scan - abdomen: report reviewed, image reviewed CT scan - pelvis: report reviewed, image reviewed Assessment and Plan 59-year-old male with 1. chronic dilatation of right colon 2. diarrhea 3. hypokalemia 4. bladder outlet obstruction/hydronephrosis s/p livingston 5. WERO Plan: CT scan findings regarding colonic dilatation and fecal retention are chronic and were present on CT from March 2019 and April 2019. Pt relays history of colorectal anastamotic stricture for which he has undergone dilatation by colorectal surgery at [place]. Patient is having bowel function 1. Start full liquid diet 2. IVF 3. replace K 4. Gi consulted and input appreciated 5. Repeat Ct A/P with oral contrast ordered per GI 6. Livingston per uro As patient's symptoms are chronic, likely due to colorectal anastamotic strictu re, recommend follow up with Dr. Lawson - patient's colorectal surgeon at [place] upon discharge. Unfortunately, we do not have the capabilities of performing dilatation of the stricture and the patient would require a colostomy to help decompress the colon. He does not want a colostomy and prefers to follow up with [facility] as outpatient.
[2019-07-25 15:48] LABS: Calcium 9.6 mg/dL (8.4-10.2)
[2019-07-25 16:31] LABS: Creatinine,Urine 47.7 mg/dL (0.1-20.0)
[2019-07-25] MEDS: TAMSULOSIN 0.4 MG CAP PO SCH (17:00)
--- NOTE | 2019-07-25 18:06 | Cat Scan Report ---
CT abdomen pelvis wo con INDICATION: abd pain, abnormal CT. TECHNIQUE: All CT scans at this location are performed using the following dose modulation technique: Automated exposure control. COMPARISON: CT scan dated 07/24/2019 and 05/27/2019 FINDINGS: Abdomen: No acute abnormality is noted in the lower chest. There is a trace amount of ascites in the upper abdomen adjacent to the liver and spleen. The pancreas, adrenal glands, and small bowel show no acute abnormality. There is no bowel obstruction. There is bilateral hydronephrosis which is unchanged from yesterday's exam. There is retroperitoneal adenopathy appears unchanged from yesterday's study and is increased in prominence when compared to 07/27/2018. Atherosclerotic calcifications are noted in the aorta, renal arteries, mesenteric vessels a nd iliac arteries. This is unchanged in appearance. Pelvis: There is a Velazquez catheter in the urinary bladder. Is prominence of the prostate gland. There is bilateral iliac chain adenopathy which is unchanged from yesterday's study. Increased since er. There is subcutaneous edema. On review of bone windows, no acute osseous abnormalities are seen. IMPRESSION: 1. There has been no significant change since yesterday's exam. Bilateral hydronephrosis persists and is stable. There is retroperitoneal and iliac chain adenopathy which is unchanged from yesterday's study but inc reased since May. This is most concerning for neoplastic etiology. Signer Name: Evelio Feliciano MD Signed: 07/25/2019 6:01 PM Workstation Name: [id number]
--- NOTE | 2019-07-25 18:43 | Consultation ---
HISTORY OF PRESENT ILLNESS: The patient is a gentleman who has a significant rectal cancer and history of HIV, smoking, COPD, heart disease, tuberculosis and presents with fecal incontinence, nausea, progressive weakness. Creatinine was high. Catheter was draining from ____ is clear. PAST MEDICAL HISTORY: As mentioned above. PAST SURGICAL HISTORY: Colostomy with reversal. SOCIAL HISTORY: Smoking. FAMILY HISTORY: Noncontributory. ALLERGIES: LISINOPRIL. MEDICATIONS: Valtrex, metoprolol. REVIEW OF SYSTEMS: Weight loss and cachexia. PHYSICAL EXAMINATION: GENERAL: He is awake. He is in no distress, cachectic with a port. ABDOMEN: Soft, nondistended. Digital rectal exam irregular mass. GENITALIA: Testes descended bilaterally with a Velazquez draining clear. IMPRESSION: Bilateral hydronephrosis, likely from trigonal involvement. He may need stents placed or percutaneous nephrostomies and creatinine down to ____. Recommend conservative therapy. JOB# [id number] VASILE/OSMANY
[2019-07-25] MEDS: SODIUM BICARBONATE 650 MG TAB PO SCH (20:29)
[2019-07-25] MEDS ORDERED: SODIUM CHLORIDE 0.9% 100 ML IVPB IV SCH (23:02)
[2019-07-26] MEDS: MORPHINE 2 MG/1 ML INJ IV PRN ×2 (04:53→09:25)
[2019-07-26] MEDS: SODIUM CHLORIDE 0.9% 1000 ML 1,000 ML IV SCH (05:03)
[2019-07-26 08:28] LABS: Basophils % (Auto) 0.7 % (0.0-1.8); Eosinophils # (Auto) 0.1 K/mm3 (0.0-0.4); Eosinophils % (Auto) 2.1 % (0.0-4.3); Lymphocytes # (Auto) 1.1 K/mm3 (1.2-5.4); Lymphocytes % (Auto) 14.9 % (13.4-35.0); Mean Corpuscular HGB Conc 34 % (32-34); Mean Corpuscular Volume 110 fl (84-94); Monocytes # (Auto) 0.6 K/mm3 (0.0-0.8); Monocytes % (Auto) 8.5 % (0.0-7.3); Platelet Count 269 K/mm3 (140-440); Red Blood Count 2.49 M/mm3 (3.65-5.03); Red Cell Distribution Width 14.6 % (13.2-15.2)
--- NOTE | 2019-07-26 08:35 | Gastroenterology Progress Note ---
Assessment and Plan 1.abnormal CT- chronic dilatation of right colon (compared to previous CTs) with associated chronic symptoms of diarrhea and right sided abd pain 2.blood in stool-no active signs of bleeding 3.H/o colostomy w/ reversal 2/2 diverticulitis 4.H/o anal cancer?/herpatic lesions of rectum 5.bladder outlet obstruction/hydronephrosis s/p livingston -afebrile -WBC and H/H WNL -abd CT upon admission showed bilateral hydronephrosis with questionable bladder mass and distended/feces filled right colon which raises possibility for obstructive process in transverse colon but reading difficult due to no contrast -last colonoscopy 07/2018 prior to colostomy reversal at [place] per pt (results unavailable at this time); doubt colon obstruction due to mass given recent colonoscopy -patient relays a hx of colorectal anastamotic stricture requiring multiple previous dilatations by colorectal surgery at [place] (Dr. Lawson?) which is likely etiology of symptoms -repeat abd CT w/ contrast yesterday showed no bowel obstruction -clinically, patient is stable with no abd distention, N/V, and +bowel function. Tolerating liquids. -no plan for scope at this time -advance diet up to GI soft as tolerated -continue supportive care -surgery following with option of another colostomy to help decompress the colon was given to patient to which he refused -recommend patient f/u upon discharge with colorectal surgery at [place] for further management -no further GI recommendations at this time -will sign off, please call if needed Subjective Date of service: 07/26/19 Principal diagnosis: bowel obstruction?, blood in stool Interval history: No acute distress or active signs of bleeding. +BM overnight per pt. Tolerating liquids. Objective - Constitutional Vitals: Temp Pulse Resp BP Pulse Ox 98.1 F 91 H 18 125/80 100 07/26/19 04:49 07/26/19 04:49 07/26/19 04:49 07/26/19 04:49 07/26/19 04:49 General appearance: no acute distress - EENT Eyes: PERRL, EOM intact ENT: hearing intact - Cardiovascular Rhythm: regular - Gastrointestinal General gastrointestinal: Present: soft, non-tender, non-distended, normal bowel sounds, other (+scars from prior surgery) - Neurologic Neurological: alert and oriented x3 - Labs CBC & Chem 7: 07/26/19 06:45 07/26/19 06:45 Labs: Laboratory Results - last 24 hr 07/25/19 07/25/19 07/25/19 15:06 15:06 16:04 WBC RBC MCV MCH MCHC RDW Plt Count Lymph % (Auto) Josephine % (Auto) Eos % (Auto) Baso % (Auto) Lymph # Josephine # Eos # Baso # Seg Neutrophils % Seg Neutrophils # Sodium 141 Potassium 4.0 D 4.0 Chloride 114.4 H Carbon Dioxide 14 L Anion Gap 17 BUN 20 Creatinine 1.6 H Estimated GFR 54 BUN/Creatinine Ratio 13 Glucose 138 H Calcium 9.6 Urine Creatinine 47.7 H Urine Sodium 28 07/26/19 06:45 WBC 7.1 RBC 2.49 L MCV 110 H MCH 37 H MCHC 34 RDW 14.6 Plt Count 269 Lymph % (Auto) 14.9 Josephine % (Auto) 8.5 H Eos % (Auto) 2.1 Baso % (Auto) 0.7 Lymph # 1.1 L Josephine # 0.6 Eos # 0.1 Baso # 0.0 Seg Neutrophils % 73.8 H Seg Neutrophils # 5.3 Sodium Potassium Chloride Carbon Dioxide Anion Gap BUN Creatinine Estimated GFR BUN/Creatinine Ratio Glucose Calcium Urine Creatinine Urine Sodium
[2019-07-26 08:45] LABS: Hematocrit 27.3 % (35.5-45.6); Hemoglobin 9.2 gm/dl (11.8-15.2)
[2019-07-26 08:47] LABS: BUN/Creatinine Ratio 11; Blood Urea Nitrogen 16 mg/dL (9-20); Calcium 8.8 mg/dL (8.4-10.2); Hemolysis Index 4
[2019-07-26] MEDS: cefTRIAXone/NS 1 GM/50 ML 1 GM/50 ML BAG IV SCH (10:18)
[2019-07-26] MEDS: NICOTINE 14 MG/24 HR PATCH TD SCH (10:18)
[2019-07-26] MEDS: TAMSULOSIN 0.4 MG CAP PO SCH (10:19)
[2019-07-26] MEDS: SODIUM BICARBONATE 650 MG TAB PO SCH ×2 (10:26→17:30)
[2019-07-26] MEDS ORDERED: POTASSIUM CHLORIDE ER 20 MEQ TAB PO SCH (12:00)
--- NOTE | 2019-07-26 12:01 | Progress Note ---
Assessment and Plan Acute Kidney injury due to obstructive uropathy, pre-renal/ATN from diarrhea, NSAIDs: Diarrhea: Metabolic acidosis: Normocytic anemia: UTI: Hypokalemia: HTN: COPD: HIV: -Has indwelling livingston since 3 weeks, BL hydronephrosis seen on imaging, urology being consulted, start flomax -kidney function cont to improve -Start Sodium bicarb tabs for acidosis. -Replace K gently in WERO -Check Mg -Renally dose all meds -Avoid Nephrotoxic meds Eduardo Cardenas MD [phone] Subjective Date of service: 07/26/19 Principal diagnosis: bowel obstruction?, blood in stool Interval history: denies acute issues Objective - Vital Signs Vital signs: Vital Signs - 12hr 07/26/19 04:49 Temperature 98.1 F Pulse Rate 91 H Respiratory 18 Rate Blood Pressure 125/80 O2 Sat by Pulse 100 Oximetry - General Appearance General appearance: well-developed, well-nourished EENT: ATNC, PERRL, mucous membranes moist Neck: no JVD, no carotid bruit Respiratory: Present: Clear to Ascultation. Absent: Rales, Ronchi Cardiology: regular, S1S2 Gastrointestinal: normoactive bowel sounds, no tenderness, no distended Integumentary: no rash, warm and dry Neurologic: no focal deficit, no asterixis, alert and oriented x3 Musculoskeletal: other (no edema in BLE) Psychiatric: mood/affect appropriate, cooperative - Lab 07/26/19 06:45 07/26/19 06:45 Most recent lab results Calcium 8.8 mg/dL (8.4-10.2) 07/26/19 06:45 Urine Creatinine 47.7 mg/dL (0.1-20.0) H 07/25/19 16:04 Urine Sodium 28 mmol/L 07/25/19 16:04 Medications & Allergies - Medications Allergies/Adverse Reactions: Allergies lactose Adverse Reaction (Verified 07/17/19 12:17) Unknown lisinopril Adverse Reaction (Verified 04/09/19 17:57) Angioedema Home Medications: Home Medications Medication Instructions Recorded Confirmed Last Taken Type Acyclovir [Zovirax Tab] 800 mg PO Q12H #40 tab 04/09/19 07/16/19 Unknown Rx Acyclovir [Zovirax] 1 applic TP BID #2 oint...g. 04/09/19 07/16/19 Unknown Rx Ibuprofen [Motrin] 800 mg PO Q8HR #30 tablet 04/09/19 07/16/19 Unknown Rx Dicyclomine [Bentyl] 20 mg PO QID #10 tablet 05/17/19 07/16/19 Unknown Rx Docusate Sodium [Colace] 100 mg PO BID #30 capsule 05/17/19 07/16/19 Unknown Rx HYDROcodone/APAP 5-325 [Steedman 1 each PO Q6HR PRN #14 tablet 05/17/19 07/16/19 Unknown Rx 5/325] levoFLOXacin [Levaquin TAB] 500 mg PO QDAY #7 tablet 05/17/19 07/16/19 Unknown Rx metroNIDAZOLE [Flagyl] 500 mg PO Q12HR #14 tab 05/17/19 07/16/19 Unknown Rx HYDROcodone/APAP 5-325 [Steedman 1 - 2 each PO Q6HR PRN #14 tablet 05/27/19 07/16/19 Unknown Rx 5/325] Ketorolac [Toradol] 10 mg PO Q6H PRN #16 tablet 05/27/19 07/16/19 Unknown Rx Sulfamethoxazole/Trimethoprim 1 each PO BID #14 tablet 05/27/19 07/16/19 Unknown Rx [Bactrim DS TAB] Aspirin EC 325 mg PO QDAY #100 tablet 07/19/19 Unknown Rx AtorvaSTATin [Lipitor] 20 mg PO QHS #30 tablet 07/19/19 Unknown Rx Metoprolol [Lopressor TAB] 25 mg PO BID #60 tablet 07/19/19 Unknown Rx Nitrofurantoin Hamblen/M-Cryst 100 mg PO Q12HR #16 capsule 07/19/19 Unknown Rx [Macrobid CAP] Active Medications: Generic Name Dose Route Start Last Admin Trade Name Freq PRN Reason Stop Dose Admin Acetaminophen 650 mg 07/25/19 02:42 Tylenol PO Q4H PRN Pain MILD(1-3)/Fever >100.5/PANIAGUA Albuterol 2.5 mg 07/25/19 02:42 Proventil IH Q3HRT PRN Shortness Of Breath Hydralazine HCl 10 mg 07/25/19 03:32 Apresoline IV Q4H PRN Blood Pressure Hydromorphone HCl 0.5 mg 07/25/19 02:42 Dilaudid IV Q3H PRN Pain , Severe (7-10) Sodium Chloride 1,000 mls @ 50 mls/hr 07/24/19 23:45 07/26/19 05:03 Nacl 0.9% 1000 Ml IV 125 mls/hr DIRECT JASON Administration Ceftriaxone Sodium 1 gm in 50 mls @ 100 mls/hr 07/25/19 10:00 07/26/19 10:18 Rocephin/Ns 1 Gm/50 Ml IV 100 mls/hr Q24HR JASON Administration Protocol Metoclopramide HCl 5 mg 07/25/19 02:42 Reglan IV Q6H PRN Nausea And Vomiting Morphine Sulfate 2 mg 07/25/19 02:42 07/26/19 09:25 Morphine IV 2 mg Q4H PRN Administration Pain, Moderate (4-6) Nicotine 14 mg 07/25/19 10:00 07/26/19 10:18 Habitrol TD 14 mg QDAY JASON Administration Ondansetron HCl 4 mg 07/25/19 02:42 Zofran IV Q4H PRN Nausea And Vomiting Potassium Chloride 20 meq 07/26/19 12:00 K-Dur PO QDAY JASON Sodium Bicarbonate 650 mg 07/25/19 20:00 07/26/19 10:26 Sodium Bicarbonate PO 650 mg TID JASON Administration Sodium Chloride 10 ml 07/25/19 10:00 07/26/19 10:19 Sodium Chloride Flush Syringe 10 Ml IV 10 ml BID JASON Administration Sodium Chloride 10 ml 07/25/19 02:42 Sodium Chloride Flush Syringe 10 Ml IV PRN PRN LINE FLUSH Tamsulosin HCl 0.4 mg 07/25/19 15:00 07/26/19 10:19 Flomax PO 0.4 mg QDAY JASON Administration
--- NOTE | 2019-07-26 13:29 | Discharge Summary ---
Providers - Providers Date of Admission: 07/25/19 04:00 Date of discharge: 07/26/19 Attending physician: KIMBER WAHL 07/24/19 23:02 Consult to Physician [CONS] Stat Comment: Consulting Provider: TENISHA GERMAN Physician Instructions: Reason For Exam: acute renal failure 07/25/19 01:43 Consult to Physician [CONS] Stat Comment: Consulting Provider: CARIE SZYMANSKI Physician Instructions: Reason For Exam: obstruction of colon, GI bleed Consult to Physician [CONS] Stat Comment: Consulting Provider: RACH CORRIGAN Physician Instructions: Reason For Exam: bilateral hydronephrosis, WERO, mass effect 07/25/19 06:18 Consult to Physician [CONS] Routine Comment: Consulting Provider: RACH BARRETT Physician Instructions: Reason For Exam: stool with blood Primary care physician: BUTTON GRADER Hospitalization Condition: Fair Hospital course: Patient is a 59-year-old -[place] man with a history of tobacco dependency, HIV, exploratory laparotomy with Larsen's procedure for perforated diverticulitis in 2016, status post subsequent reversal of colostomy in 07/2018 with recurrent anastamotic stricture needing dilatation of his anastomosis 3 times since the surgery due to narrowing, bilateral hydronephrosis with livingston catheter in place, COPD, CAD status post CABG, hypertension, diverticulitis colostomy reversal and TB (2006) who presents to [facility] ED with abdominal pains and diarrhea for the past 3 weeks. Of note patient is a poor historian. Review of medical record shows patient was recently discharged on 07/19/19 after NSTEMI and UTI treatment. He was given a prescription for oral antibiotics to treat the urinary tract infection. Cr was 1.0 on 07/19/19. His Cr on presentation was 9.3 on 07/24/2019. Livingston was placed and next day Cr 1.6. * CT abd/pelvis without contrast IMPRESSION: 1. Slightly progressed bilateral hydronephrosis, probably due to obstruction at the ureterovesical junctions, with questionable bladder mass. Suggest urologic consultation. 2. Probably increasing retroperitoneal adenopathy. This is not well seen on this noncontrast exam. 3. Distended and feces filled right colon. Appearance raises the possibility of an obstructive process in the transverse colon. Again, this is not well demonstrated on this exam without IV or oral contrast. * Renal U/S IMPRESSION: 1. Mild to moderate bilateral hydronephrosis, of uncertain etiology. Kidneys are otherwise negative. Discharge Diagnoses: Colon Obstruction with chronic dilatation of right colon -recommend follow up with Dr. Lawson - patient's colorectal surgeon at [place] upon discharge. Unfortunately, we do not have the capabilities of performing dilatation of the stricture and the patient would require a colostomy to help decompress the colon. He does not want a colostomy and prefers to follow up with [facility] as outpatient. -CT abdomen pelvis showed: Distended and feces filled right colon. Appearance raises the possibility of an obstructive process in the transverse colon -General Surgery consulted, input noted, advise to discharge patient. Acute on chronic anemia due to GI Bleed -Hx diverticulitis -Status post colostomy and reversal in 07/2018 -Hemoccult positive -C/o intermittent blood in stool -H/H stable -May consider GI consult once pt has been evaluated by Gen Surg Bilateral hydronephrosis -Seen on today's CT Abdomen Pelvis -Livingston Catheter present on arrival -N.p.o., on IVF -Urology consulted with plans to see patient in a.m. Urinary tract infection -Hx recurrent UTI -UA positive for UTI -urine wbc 57, positive for nitrates, large leukocyte, large blood -Urine culture pending -on IV Abx Hypokalemia -Potassium on admission 2.9 -Receiving potassium replacement -Continue to monitor replete prn WERO, obstructive uropathy and vasomotor nephropathy -Cr on admission 1.6 -Receiving IVF -Avoid nephrotoxic agents -Renal dose all meds -Nephrology consulted HTN -Monitor BP -Pt is NPO, Resume home hypertensive meds once medication reconciliation is completed and pt is no longer NPO -IV hydralazine when necessary COPD by history -Albuterol when necessary HIV Positive by history -Resume antiretroviral meds when patient is no longer n.p.o. and medication reconciliation is completed Tobacco abuse -Current every day smoker -Smokes half a pack a day -Counseled for cessation for 12 minutes -Nicotine patch when necessary DVT PPX -On SCD's -Hold systemic anticoagulation given patient's complain of blood in stool Moderate Malnutrition -treat the underlying obstruction Disposition: - TO HOME OR SELFCARE Time spent for discharge: 36 minutes Core Measure Documentation - Palliative Care Palliative Care/ Comfort Measures: Not Applicable - Core Measures Any of the following diagnoses?: none - VTE Discharge Requirements Deep Vein Thrombosis/Pulmonary Embolism Present on Admission: No Has pt received <5 days of overlap therapy or INR<2.0: No Anticoagulant overlap therapy prescribed at discharge: No Contraindication No Overlap Therapy order at DC: Not Indicated Exam - Physical Exam Narrative exam: Gen: cachetic, chronically ill appearing, NAD, Awake, Alert, Orientated HEENT: NCAT, EOMI, PERRL, OP Clear Neck: supple, no adenopathy, no thyromegaly, no JVD CVS/Heart: RRR, normal S1S2, pulses present bilaterally Chest/Lungs: CTA B, Symmetrical chest expansion, good air entry bilaterally GI/Abdomen: soft, diffuse tendernes, good bowel sounds, no guarding or rebound /Bladder: no suprapubic tenderness, no CVA or paraspinal tenderness Extermity/Skin: no c/c/e, no obvious rash MSK: FROM x 4 Neuro: CN 2-12 grossly intact, no new focal deficits Psych: calm - Constitutional Vitals: Temp Pulse Resp BP Pulse Ox 97.7 F 85 18 145/78 100 07/26/19 11:36 07/26/19 11:36 07/26/19 11:36 07/26/19 11:36 07/26/19 11:36 Plan Activity: other (no strenous activity unless cleared by PCP) Diet: other (Full liquid, advance to GI soft diet if tolerates) Additional Instructions: follow up with Dr. Lawson - patient's colorectal surgeon at [place] upon discharge. Follow up with: SAADIA JANSEN MD [Primary Care Provider] - 3-5 Days RACH CORRIGAN MD [Staff Physician] - 7 Days Prescriptions: cefUROXime [Ceftin] 2 tab PO Q12H #14 tablet
[2019-07-26 16:09] VITALS: BP 135/93
== END 2019-07-26 18:08 | disposition home or self-care (01) | DRG 377 ==
LOC: ED 14:28 → UNDOADMIN 07-25 03:19 → 3A 07-25 03:19
PROVIDERS: ADMIT Internal Medicine; ATTEND Internal Medicine
DX: K92.1 Melena (principal); N17.0 Acute kidney failure with tubular necrosis; D62 Acute posthemorrhagic anemia; B20 Human immunodeficiency virus [HIV] disease; E44.0 Moderate protein-calorie malnutrition; N13.6 Pyonephrosis; E87.6 Hypokalemia; J44.9 Chronic obstructive pulmonary disease, unspecified; G89.29 Other chronic pain; K52.9 Noninfective gastroenteritis and colitis, unspecified; I25.10 Atherosclerotic heart disease of native coronary artery without angina pectoris; F17.210 Nicotine dependence, cigarettes, uncomplicated; Z71.6 Tobacco abuse counseling; Z95.1 Presence of aortocoronary bypass graft; Z79.899 Other long term (current) drug therapy; Z79.82 Long term (current) use of aspirin; Z88.8 Allergy status to other drugs, medicaments and biological substances; Z88.6 Allergy status to analgesic agent; Z68.20 Body mass index [BMI] 20.0-20.9, adult; Z85.048 Personal history of other malignant neoplasm of rectum, rectosigmoid junction, and anus
CPT/HCPCS: 36415; 74176; 76770; 80048; 80053; 81001; 82150; 82570; 83690; 84132; 84300; 85007; 85025; 87045; 87086; 99406; G0378; J0696; J2270; J2405; J3480; J7030